=== PATIENT | female | born 1975 | race Caucasian/White ===

== ENCOUNTER 2024-03-14 00:45 | Day surgery (SDC) | payer BC, SELFPAY ==
[2024-03-10 15:11] VITALS: BMI 26.8
--- NOTE | 2024-03-10 15:12 | PC.NURSE ---
Report to the Outpatient Waiting Room, entrance under the green pavilion located off [facility], at time _1100_ on date _[id number]_. Planned Procedure Time: _1pm_.? Time changes happen often and if your time is changed the preop area will call you the afternoon before. - You and your visitor will be asked to self-screen and do not enter if you have any COVID symptoms. Please call surgeon if you need to reschedule. - A mask is optional within the hospital at this time. Patients may have clear liquids (water, carbonated beverages, clear teas, apple juice) until 3 hours prior to surgery with a maximum of 20 ounces. - No food from midnight until time of surgery and no smoking Take only the following medications with a SIP of water on the morning of surgery: ___None DO NOT STOP ANY OF YOUR OTHER PRESCRIPTION MEDICATIONS PRIOR TO SURGERY EXCEPT THE FOLLOWING Medications to discontinue per physician ___Vitamin and supplement Date to take last [id number] Please no make-up, nail romansh, hairspray, perfume, deodorant, or body powder the day of surgery.? No jewelry (including any body piercings) or valuables the day of surgery, leave them at home.? Please take a shower or bath the night before, or the morning of, surgery with an antibacterial soap.? Wear comfortable, loose fitting clothing.? - Jewelry must be removed prior to entering the operating room.? Rings and piercings that are not removed may be cut off. - The hospital will not accept responsibility for valuables.? - Please leave all valuables, including medications, at home the day of surgery. If you are going home after surgery, a licensed day haul or farm charter bus driver must drive you home.? - NO public transportation without another adult if you receive anesthesia. - We recommend that an adult stay with you for 24 hours following discharge. - We also recommend that you do not drive, make important decision, drink alcoholic beverages, or take any drugs that were not prescribed by your health care provider for at least 24 hours after your discharge time. Follow any additional instructions given to you from your surgeon. Telephone instructions given to __Freida___and asked if any additional questions and then verbalized understanding. Patient advised to call surgeon office or pre surgery nurse liaison [phone] if any additional questions.
--- NOTE | 2024-03-14 07:16 | WPDHPUPDATE1 ---
History and Physical Update Update Date/Time: 03/14/24 07:16 History and Physical has been reviewed, including an updated exam of the patient. There are NO changes in the patient's condition. Risks, benefits, and alternatives have been discussed and questions answered. Patient agrees to proceed with hysteroscopy with D&C.
[2024-03-14 11:07] LABS: BEDSIDEPREGUCG Negative (Negative)
[2024-03-14] MEDS: ACETAMINOPHEN 500 MG TABLET 1000 MG PO (11:25)
[2024-03-14 11:26] VITALS: BP 119/76; PULSE 77; RESP 18; TEMP 36.4; O2SAT 100
[2024-03-14] MEDS: LACTATED RINGERS 1,000 ML 30 ML IV CONT (11:30)
--- NOTE | 2024-03-14 11:43 | WPDANESEPPF ---
Anes - Initial Pre Proc Eval Procedure: Operation Date: 03/14/24 13:00 Proposed Procedures p Hysteroscopy Dilation and Curettage - Trini Baker MD Date/Time: 03/14/24 11:43 Surgeon: Trini Baker MD Pre Op Diagnosis: endometrial hyperplasia Patient Data Age: 49 Gender: F Height: 1.52 m Weight: 63.3 kg Last Vital Signs Temp 36.4 C 03/14/24 11:26 Pulse 77 03/14/24 11:26 Resp 18 03/14/24 11:26 BP 119/76 03/14/24 11:26 Pulse Ox 100 03/14/24 11:26 O2 Del Method Room Air 03/14/24 11:26 Allergies Allergy/AdvReac Type Severity Reaction Status Date / Time No Known Allergies Allergy Verified 03/14/24 11:34 Home Medications Medication Instructions Recorded Confirmed Type cholecalciferol (vitamin D3) 10 10 mcg PO DAILY 12/09/23 03/14/24 History mcg (400 unit) capsule soy isoflavone-black cohosh 1 cap PO DAILY 03/09/24 03/14/24 History root-magnolia bark 155 mg capsule (Estroven) Laboratory Tests 03/14/24 11:05 POC Urine HCG, Qual Negative (Negative) Patient hx anesthesia problems: none Family hx anesthesia problems: none Results Review: All pre-operative results and documents have been reviewed as part of the pre-operative evaluation. [facility] Past Medical History Medical History (Updated 03/14/24 @ 11:43 by Samuel Benítez MD) Overweight Surgical History Surgical History Delivery by section xs 3 History of endometrial ablation History of tubal ligation Family History Family History Father Diabetes mellitus Hypertension Skin cancer Social History Social History Smoking status: Never smoker Alcohol intake: current Drinks per week: 4 Alcohol use details: socially Substance use: never Lack of Transportation: No Lack of Food: Never True Current Housing: I Have Housing Concerned About Future Housing: No Difficulty Paying Gas/Electric Bills: No Difficulty Paying for Meds: No Currently Unemployed: No Education: Bachelor's Degree Difficulty w/ Childcare or Family Care: No Living arrangements: with family 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 Gender identity (if verbalized by the patient): Female Sexual Orientation (if Verbalized by the Patient): Straight or Heterosexual Spiritual care concerns: No Anes - Eval Final PreProcedure Day of Procedure 03/14/24 11:43 Patient weight: overweight Heart: regular rate and rhythm Lungs: clear to auscultation Airway: Mallampati scale class II Neurological: alert and oriented Last oral intake: >/= 8 hours ASA classification: II Emergent: no Anesthetic plan: proceed Anesthesia type and monitoring: general GIVS and standard monitoring Results Review: All pre-operative results and documents have been reviewed as part of the pre-operative evaluation. Informed Consent: The patient's anesthetic plan and its attendant risks and benefits were discussed with the patient/family/POA. Questions were solicited and answers provided to the satisfaction of the patient/family/POA.
[2024-03-14 14:08] VITALS: BP 116/47; PULSE 85; RESP 12; O2SAT 99
--- NOTE | 2024-03-14 14:13 | P.OP_ITS ---
Procedure Note - Detailed Date of Procedure 03/14/24 Pre-op Diagnosis Thickened endometrium on US Pelvic pain History of endometrial ablation Post-op Diagnosis Same Procedure Performed Operative hysteroscopy with D&C Surgeon Trini Baker MD Anesthesia MAC Findings normal appearing cervix; uterus with multiple adhesions from prior ablation-- small tracks that were extended using hysteroscopic Fluid deficit: 640cc Description of Procedure Freida was taken to the operating room where she was placed under sedation without complications. She was then prepped and draped in the usual sterile fashion in the dorsal lithotomy position with her legs in low Fabián stirrups. A time-out was performed and no perioperative antibiotics were indicated. A bivalve speculum was placed within the vagina where the cervix was easily identified. The anterior lip of the cervix was grasped with a single-tooth tenaculum. The cervix was then serially dilated to allow for the hysteroscope, but I was not able to get into the uterine cavity (sounded to about 4cm). The h ysteroscope was advanced into the cervix and endometrial scar tissue/tracks were noted. Using the hysteroscopic scissors and graspers; the tracks were followed and extended, the tissue was soft and easy to cut, therefore, I felt like I was within the uterine cavity in the endometrium (sounded to about 8.5cm at this point and I knew the uterus measures ~9.5cm). Using a bedside US, I was monitoring where my instruments were located to verify I was not going to perforate the uterus. The cavity size was extended, but I could not verify that I had entered into the endometrial cyst (wondering if it is an adenomatous lesions in the myometrium). At this point, the fluid deficit was around 600cc and I decided to end the hysteroscopic portion as I did not want to perforate the uterus or have a higher fluid deficit. A curettage was then performed and a sample was obtained. Good hemostasis was noted. All instruments were removed from the vagina. Sponge, lap, instrument, and needle counts were correct at the end of the procedure. Patient was awoken from anesthesia and taken to recovery with plans of same-day discharge home. Estimated Blood Loss 10 IV Fluids 1,000 Pathology Yes (endometrial curettings) Complications No immediate complications Condition Stable Disposition Same day [facility] Billing Surgery - Charge Forward: Surgery Billing
[2024-03-14 14:30] VITALS: BP 123/78; PULSE 80; RESP 16
[2024-03-14] MEDS: IBUPROFEN 400 MG TABLET 800 MG PO (14:47)
[2024-03-14 15:00] VITALS: BP 119/80; PULSE 89; RESP 16
== END 2024-03-14 15:20 | disposition home or self-care (01) ==
PROVIDERS: Visit Provider Obstetrics & Gynecology
PROC: 0U5B8ZZ Destruction of Endometrium, Via Natural or Artificial Opening Endoscopic (ICD-10-PCS; CPT 58563; principal; 2024-03-14 13:00)
DX: R93.89 Abnormal findings on diagnostic imaging of other specified body structures (principal); Z98.890 Other specified postprocedural states; Z98.51 Tubal ligation status; Z84.0 Family history of diseases of the skin and subcutaneous tissue
CPT/HCPCS: 58558; 88305; A9270; J1100; J2003; J2250; J2405; J3010; J7030; J7120

== ENCOUNTER 2024-05-08 10:20 | Emergency (ER) | payer BC, SELFPAY ==
--- NOTE | ~2024-05-08 | CT_ITS ---
EXAMINATION: CT abdomen pelvis w con DATE: 05/08/2024 13:58 INDICATION: Lower abdominal pain. TECHNIQUE: Computed tomography (CT) of the abdomen and pelvis was performed with 100 mL Omnipaque 350 intravenous contrast. Automated exposure control and iterative reconstruction technique were employe d. The dose-length product was 233.36 mGy-cm. COMPARISON: None. FINDINGS: The visualized portions of the lung bases are clear without pneumonia or pleural effusion. The heart size is normal. No pericardial effusion. The liver, gallbladder, spleen, pancreas, adrenal glands, and kidneys are normal. There are no dilated loops of bowel. The appendix is not visualized. There are no pathologically enlarged lymph nodes. There is no free intraperitoneal fluid. The endomet rial complex is thickened to 2.0 cm, which may be endometrial hyperplasia or polyp. There is mild tho racic spondylosis. IMPRESSION: 1. No specific etiology for the patient's symptoms. Reviewed, dictated and finalized at location A. RONMENTAL CONTROL ADMINISTRATOR
[2024-05-08 10:34] VITALS: BP 115/77; PULSE 84; RESP 18; TEMP 36.4; O2SAT 100
[2024-05-08 12:00] VITALS: BP 120/70; PULSE 76; RESP 16; TEMP 36.6; O2SAT 98
[2024-05-08 12:00] LABS: Basophils Percent Auto 0.4 % (0.2-1.2); Eosinophils Percent Auto 0.1 % (0-4.4); Hematocrit 44.9 % (37.0-47.0); Hemoglobin 15.1 g/dL (12.0-15.0); Immature Granulocyte Absolute 0.03 K/mm3 (0.00-0.031); Immature Granulocyte Percent A 0.3 % (0-0.5); Lymphocytes Absolute Auto 0.67 K/mm3 (0.9-3.2); Lymphocytes Percent Auto 6.2 % (18.3-44.2); Mean Corpuscular HGB Conc 33.6 g/dl (32-36); Mean Corpuscular Hemoglobin 30.8 pg (26-34); Mean Corpuscular Volume 91.4 fl (80-100); Mean Platelet Volume 10.1 fl (7.4-10.4); Monocytes Absolute Auto 0.6 K/mm3 (0.1-0.6); Monocytes Percent Auto 5.3 % (2.6-8.5); Neutrophils Absolute Auto 9.5 K/mm3 (1.3-6.7); Neutrophils Percent Auto 87.7 % (45.5-73.1); Platelet Count Result 221 k/mm3 (150-375); Red Blood Count 4.91 M/mm3 (4.2-5.4); Red Cell Distribution Width 11.9 % (11.5-14.5); White Blood Count 10.8 K/mm3 (4.5-10.0)
[2024-05-08 12:06] LABS: Add Urine Microscopic? NO; Appearance Urine Clear (Clear); Bilirubin Urine Negative (Negative); Blood Urine Negative (Negative); Color Urine Yellow (Yellow); Glucose Urine UA Negative (Negative); Ketones Urine Negative (Negative); Leukocyte Esterase Ur Negative LEU/UL (Negative); Nitrate Urine Negative (Negative); Protein Urine Negative (Negative); Specific Grav Ur 1.009 (1.001-1.035); Urobilinogen Urine 0.2 mg/dL (<2.0)
[2024-05-08 12:11] LABS: Alanine Aminotransferase 19 U/L (6-35); Albumin Level 4.3 g/dL (3.5-5.1); Alkaline Phosphatase 58 U/L (38-126); Anion Gap 7 mmol/L (4-12); Aspartate Amino Transferase 23 U/L (14-36); Bilirubin,Total 0.8 mg/dL (0.2-1.3); Blood Urea Nitrogen 10 mg/dL (7-17); Calcium 9.4 mg/dL (8.4-10.2); Carbon Dioxide 23 mmol/L (22-30); Chloride 107 mmol/L (98-107); Estimated CRCL calculation 62 ml/min; Estimated Glomerular Filt Rate > 60; Glucose 105 mg/dL (65-110); Sodium 137 mmol/L (137-145)
[2024-05-08 13:00] VITALS: BP 118/68; PULSE 78; RESP 16; TEMP 36.5; O2SAT 100
--- NOTE | 2024-05-08 13:04 | ED.GENADULT ---
HPI - General Adult General Chief complaint: Urogenital-Female Stated complaint: pelvic pain Time Seen by Provider: 05/08/24 12:28 Source: patient and family Mode of arrival: ambulatory Limitations: no limitations History of Present Illness HPI narrative: 49 YEARS OLD WHITE FEMALE CAME TO THE ED BY PRIVATE CAR COMPLAINING OF LOWER ABDOMINAL PAIN SINCE April. PATIENT IS STATUS POST D AND C ON MARCH 14. PATIENT REPORT THAT THE PAIN USUALLY GETS BETTER ON IBUPROFEN, THIS MORNING DID NOT. SHE REPORTS VOMITING TWICE THIS MORNING WITH THE PAIN. SHE DENIES ANY FEVER OR CHILLS DIARRHEA, CONSTIPATION VAGINAL BLEEDING OR DISCHARGE. Related Data Home Medications Medication Instructions Recorded Confirmed cholecalciferol (vitamin D3) 10 10 mcg PO DAILY 12/09/23 03/30/24 mcg (400 unit) capsule Allergies Allergy/AdvReac Type Severity Reaction Status Date / Time No Known Allergies Allergy Verified 03/30/24 13:35 Review of Systems Review of Systems: All systems reviewed & are unremarkable except as noted in HPI and below PMFSH Past Medical History Medical History Overweight Surgical History Surgical History Delivery by section xs 3 History of endometrial ablation History of tubal ligation Family History Family History Father Diabetes mellitus Hypertension Skin cancer Social History Social History Smoking status: Never smoker Alcohol intake: current Drinks per week: 4 Alcohol use details: socially Substance use: never Do You Feel Safe in your Home?: Yes Lack of Transportation: No Lack of Food: Never True Current Housing: Decline to Answer Concerned About Future Housing: Decline to Answer Difficulty Paying Gas/Electric Bills: Decline to Answer Difficulty Paying for Meds: Decline to Answer Currently Unemployed: Decline to Answer Education: Decline to Answer Difficulty w/ Childcare or Family Care: No Living arrangements: with family 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 Gender identity (if verbalized by the patient): Female Sexual Orientation (if Verbalized by the Patient): Straight or Heterosexual Spiritual care concerns: No Exam Narrative: GENERAL APPEARANCE: WELL-DEVELOPED, WELL-NOURISHED SKIN: NORMAL COLOR HEAD: NORMOCEPHALIC, NONTRAUMATIC EYES: CLEAR CONJUNCTIVA ENT: OROPHARYNX NORMAL, EARS NORMAL, NOSE NORMAL NECK: SUPPLE, NONTENDER CHEST AND RESPIRATORY: AIRWAY PATENT, NO RESPIRATORY DISTRESS, NO ACCESSORY MUSCLE USE HEART: REGULAR RATE/RHYTHM ABDOMEN: SOFT, NONTENDER, NO ORGANOMEGALY, QUIET BOWEL SOUNDS VASCULAR: NORMAL PERIPHERAL PULSES, NORMAL CAPILLARY REFILL. MUSCULOSKELETAL: NORMAL RANGE OF MOTION, NONTENDER BACK NEUROLOGIC: ALERT AND ORIENTED ?3, LOAD HAUL DUMP OPERATOR IS NORMAL TESTED, NO GROSS MOTOR DEFICIT Course Vital Signs Vital signs: Vital Signs Temperature 36.4 C L 05/08/24 10:34 Pulse Rate 84 05/08/24 10:34 Respiratory Rate 18 05/08/24 10:34 Blood Pressure 115/77 05/08/24 10:34 Pulse Oximetry 100 05/08/24 10:34 Oxygen Delivery Room Air 05/08/24 10:34 Temperature 36.4 C L 05/08/24 10:34 Pulse Rate 84 05/08/24 10:34 Respiratory Rate 18 05/08/24 10:34 Blood Pressure 115/77 05/08/24 10:34 Pulse Oximetry 100 05/08/24 10:34 Oxygen Delivery Room Air 05/08/24 10:34 Medical Decision Making MDM Narrative Medical decision making narrative: PATIENT CAME WITH LOWER ABDOMINAL PAIN VITAL SIGNS ARE STABLE PHYSICAL EXAMINATION SHOWED NO LOCALIZED TENDERNESS, DIFFERENTIAL DIAGNOSIS URINARY TRACT INFECTION, SCAR TISSUE POST D&C MARCH 14, STRESS RELATED SYMPTOMS, CONSTIPATION, APPENDICITIS, CHOLECYSTITIS, DIVERTICULITIS. BLOOD WORKUP TODAY INCLUDES CBC, CMP, LIPASE SHOWED WBC OF 10.8, OTHERWISE INSIGNIFICANT URINALYSIS SHOWED NO SIGN OF INFECTION CT ABDOMEN AND PELVIS WITH IV CONTRAST SHOWED Differential Diagnosis Differential Diagnosis: ABOVE Vital Signs Vital Signs: Vital Signs Temperature 36.4 C L 05/08/24 10:34 Pulse Rate 84 05/08/24 10:34 Respiratory Rate 18 05/08/24 10:34 Blood Pressure 115/77 05/08/24 10:34 Pulse Oximetry 100 05/08/24 10:34 Oxygen Delivery Room Air 05/08/24 10:34 Temperature 36.4 C L 05/08/24 10:34 Pulse Rate 84 05/08/24 10:34 Respiratory Rate 18 05/08/24 10:34 Blood Pressure 115/77 05/08/24 10:34 Pulse Oximetry 100 05/08/24 10:34 Oxygen Delivery Room Air 05/08/24 10:34 Lab Data 05/08/24 11:41 05/08/24 11:41 Labs: Lab Results 05/08/24 05/08/24 Range/Units 11:40 11:41 WBC 10.8 H (4.5-10.0) K/mm3 RBC 4.91 (4.2-5.4) M/mm3 Hgb 15.1 H (12.0-15.0) g/dL Hct 44.9 (37.0-47.0) % MCV 91.4 (80-100) fl MCH 30.8 (26-34) pg MCHC 33.6 (32-36) g/dl RDW 11.9 (11.5-14.5) % Plt Count 221 (150-375) k/mm3 MPV 10.1 (7.4-10.4) fl Immature Gran % (Auto) 0.3 (0-0.5) % Neut % (Auto) 87.7 H (45.5-73.1) % Lymph % (Auto) 6.2 L (18.3-44.2) % [place] % (Auto) 5.3 (2.6-8.5) % Eos % (Auto) 0.1 (0-4.4) % Baso % (Auto) 0.4 (0.2-1.2) % Lymph # (Auto) 0.67 L (0.9-3.2) K/mm3 [place] # (Auto) 0.6 (0.1-0.6) K/mm3 Eos # (Auto) 0.0 (0-0.3) K/mm3 Baso # (Auto) 0.0 (0.0-0.1) K/mm3 Abs Immat Gran (auto) 0.03 (0.00-0.031) K/mm3 Absolute Neuts (auto) 9.5 H (1.3-6.7) K/mm3 Absolute Nucleated RBC 0.000 (0.0-0.012) K/mm3 Nucleated RBC % 0.0 (0.0-0.2) % Sodium 137 (137-145) mmol/L Potassium 4.0 (3.4-5.0) mmol/L Chloride 107 (98-107) mmol/L Carbon Dioxide 23 (22-30) mmol/L Anion Gap 7 (4-12) mmol/L BUN 10 (7-17) mg/dL Creatinine 0.80 (0.7-1.0) mg/dL Estim Creat Clear Calc 62 ml/min Estimated GFR > 60 (59 - ) Glucose 105 (65-110) mg/dL Calcium 9.4 (8.4-10.2) mg/dL Total Bilirubin 0.8 (0.2-1.3) mg/dL AST 23 (14-36) U/L ALT 19 (6-35) U/L Alkaline Phosphatase 58 (38-126) U/L Total Protein 7.0 (6.3-8.2) g/dL Albumin 4.3 (3.5-5.1) g/dL Lipase 84 (23-300) U/L Urine Color Yellow (Yellow) Urine Appearance Clear (Clear) Urine pH 6.0 (5.0-9.0) Ur Specific [place] 1.009 (1.001-1.035) Urine Protein Negative (Negative) mg/dL Urine Glucose (UA) Negative (Negative) mg/dL Urine Ketones Negative (Negative) mg/dL Ur Blood (Man) Negative (Negative) Urine Nitrate Negative (Negative) Urine Bilirubin Negative (Negative) Urine Urobilinogen 0.2 (<2.0) mg/dL Leukocyte Esterase Rfl Negative (Negative) TL/UL Imaging Data Radiologist's impression: Impressions Abdomen/Pelvis CT 05/08/24 13:58 IMPRESSION: 1. No specific etiology for the patient's symptoms. Discharge Plan Discharge Clinical Impression: Lower abdominal pain Patient Disposition: Home, Self-Care Condition: Stable Instructions: Abdominal Pain (ED) Additional Instructions: RETURN IF SYMPTOMS ARE WORSENING , CALL YOUR OBGYN FOR APPOINTMENT, TAKE TYLENOL, IBUPROFEN NEEDED FOR ACHES AND PAIN, CONTINUE HOME MEDICATIONS. Prescriptions: No Action cholecalciferol (vitamin D3) 10 mcg (400 unit) capsule 10 mcg PO DAILY norethindrone ac-eth estradiol 1-20 mg-mcg tablet 1 tablet PO DAILY Qty: 84 3RF Rx Instructions: in a continuous manner to skip cycles Follow-up/Referrals: PHYSICIAN NOT ON STAFF,NONSTAFF [Primary Care Provider] -
[2024-05-08 13:21] LABS: Lipase 84 U/L (23-300)
--- NOTE | 2024-05-08 13:30 | PC.NURSE ---
Pt. states there is no chance she is . Prior uterine ablation and my tubes are tied. CT notified pt. wanting to sign consent.
[2024-05-08 14:00] VITALS: BP 122/70; PULSE 74; RESP 16; TEMP 36.6; O2SAT 98
== END 2024-05-08 14:55 | disposition home or self-care (01) ==
PROVIDERS: Emergency Provider Emergency Medicine
DX: R10.30 Lower abdominal pain, unspecified (principal)
CPT/HCPCS: 36415; 74177; 80053; 81003; 83690; 85025; 99284; Q9967

== ENCOUNTER 2024-05-16 13:50 | Outpatient (CLI) | payer BC, SELFPAY | END 2024-05-16 13:51 | disposition home or self-care (01) | LOC: ANHLAB 13:52 | PROVIDERS: Visit Provider Anesthesiology | DX: Z01.812 Encounter for preprocedural laboratory examination (principal); R10.2 Pelvic and perineal pain | CPT/HCPCS: 36415; 86850; 86900; 86901 ==

== ENCOUNTER 2024-05-23 00:32 | Day surgery (SDC) | payer BC, SELFPAY ==
[2024-05-13 14:45] VITALS: BMI 26.6
--- NOTE | 2024-05-13 14:51 | PC.NURSE ---
Report to the Outpatient Waiting Room, entrance under the green pavilion located off [facility], at time _0600_ on date _[id number]_. Planned Procedure Time: _0730_.? Time changes happen often and if your time is changed the preop area will call you the afternoon before. - You and your visitor will be asked to self-screen and do not enter if you have any COVID symptoms. Please call surgeon if you need to reschedule. - A mask is optional within the hospital at this time. Patients may have clear liquids (water, carbonated beverages, clear teas, apple juice) until 3 hours prior to surgery with a maximum of 20 ounces. - No food from midnight until time of surgery and no smoking. This includes no chewing gum, candy or mints. Take only the following medications with a SIP of water on the morning of surgery: ____None DO NOT STOP ANY OF YOUR OTHER PRESCRIPTION MEDICATIONS PRIOR TO SURGERY EXCEPT THE FOLLOWING Medications to discontinue per physician ___Vitamin Date to take last hfnp___[id number]____ Please no make-up, nail norwegian, hairspray, perfume, deodorant, or body powder the day of surgery.? No jewelry (including any body piercings) or valuables the day of surgery, leave them at home.? Please take a shower or bath the night before, or the morning of, surgery with an antibacterial soap.? Wear comfortable, loose fitting clothing.? . - Jewelry must be removed prior to entering the operating room.? Rings and piercings that are not removed may be cut off. - The hospital will not accept responsibility for valuables.? - Please leave all valuables, including medications, at home the day of surgery. If you are going home after surgery, a licensed national dedicated truck driver must drive you home.? - NO public transportation without another adult if you receive anesthesia. - We recommend that an adult stay with you for 24 hours following discharge. - We also recommend that you do not drive, make important decision, drink alcoholic beverages, or take any drugs that were not prescribed by your health care provider for at least 24 hours after your discharge time. Follow any additional instructions given to you from your surgeon. Telephone instructions given to __Freida__and asked if any additional questions and then verbalized understanding. Patient advised to call surgeon office or pre surgery nurse liaison [phone] if any additional questions.
[2024-05-23] VITALS (13 sets, daily range): BP systolic 95–128; BP diastolic 54–74; PULSE 53–83; RESP 14–20; TEMP 36.3–37.1; O2SAT 95–100
[2024-05-23] MEDS: ACETAMINOPHEN 500 MG TABLET 1000 MG PO ×2 (06:52→19:05)
[2024-05-23] MEDS: KETOROLAC 15 MG/ML VIAL (*BKC) IV PUSH (06:52)
--- NOTE | 2024-05-23 07:09 | WPDHPUPDATE1 ---
History and Physical Update Update Date/Time: 05/23/24 07:09 History and Physical has been reviewed, including an updated exam of the patient. There are NO changes in the patient's condition. Risks, benefits, and alternatives have been discussed and questions answered. Patient agrees to proceed with robotic assisted total laparoscopic hysterectomy with bilateral salpingectomy and cystoscopy.
--- NOTE | 2024-05-23 07:20 | P.PNAN_ITS ---
Anes - Initial Pre Proc Eval Procedure: Operation Date: 05/23/24 07:30 Proposed Procedures p Robotic Assisted Total Laparoscopic Hysterectomy with Bilateral Salpingectomy - Trini Baker MD Date/Time: 05/23/24 07:20 Surgeon: Trini Baker MD Pre Op Diagnosis: pelvic pain Patient Data Age: 49 Gender: F Height: 1.52 m Weight: 61.8 kg Allergies Allergy/AdvReac Type Severity Reaction Status Date / Time No Known Allergies Allergy Verified 05/16/24 14:43 Home Medications ?Medication ?Instructions ?Recorded ?Confirmed ?Type cholecalciferol (vitamin D3) 10 10 mcg PO DAILY 12/09/23 05/16/24 History mcg (400 unit) capsule acetaminophen 500 mg tablet 1,000 mg (2 x 500 mg) PO TID #60 05/23/24 Rx tabs docusate sodium 100 mg capsule 100 mg PO BID #90 caps 05/23/24 Rx (Colace) ibuprofen 800 mg tablet 800 mg PO TID #30 tabs 05/23/24 Rx nitrofurantoin 100 mg PO Q12H 7 days #14 caps 05/23/24 Rx monohydrate/macrocrystals 100 mg capsule (Macrobid) ondansetron 4 mg disintegrating 4 mg PO Q6H PRN nausea and 05/23/24 Rx tablet vomiting #30 tabs oxycodone 5 mg tablet See Rx Instructions .Route 05/23/24 Rx .COMPLEX PRN pain #24 tabs : patient denies (negative) Patient hx anesthesia problems: post op nausea/vomiting Family hx anesthesia problems: none Results Review: All pre-operative results and documents have been reviewed as part of the pre- operative evaluation. [facility] Past Medical History Medical History Overweight Surgical History Surgical History H/O dilation and curettage 03/14/2024 History of endometrial ablation History of tubal ligation Delivery by section xs 3 Family History Family History Father Diabetes mellitus Hypertension Skin cancer Social History Social History Smoking status: Never smoker Alcohol intake: current Drinks per week: 3 Alcohol use details: socially Substance use: never Do You Feel Safe in your Home?: Yes Lack of Transportation: No Lack of Food: Never True Current Housing: Decline to Answer Concerned About Future Housing: Decline to Answer Difficulty Paying Gas/Electric Bills: Decline to Answer Difficulty Paying for Meds: Decline to Answer Currently Unemployed: Decline to Answer Education: Decline to Answer Difficulty w/ Childcare or Family Care: No Living arrangements: with family 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 Gender identity (if verbalized by the patient): Female Sexual Orientation (if Verbalized by the Patient): Straight or Heterosexual Spiritual care concerns: No Anes - Eval Final PreProcedure Day of Procedure 05/23/24 07:20 Patient weight: overweight Heart: regular rate and rhythm Lungs: normal air movement Airway: Mallampati scale class II Neurological: alert and oriented Last oral intake: >/= 8 hours ASA classification: II Emergent: no Anesthetic plan: proceed Anesthesia type and monitoring: general and standard monitoring Results Review: All pre-operative results and documents have been reviewed as part of the pre- operative evaluation. Informed Consent: The patient's anesthetic plan and its attendant risks and benefits were discussed with the patient/family/POA. Questions were solicited and answers provided to the satisfaction of the patient/family/POA.
[2024-05-23] MEDS: SCOPOLAMINE 1 MG PATCH 1 PATCH TRANSDERM (07:30)
[2024-05-23] MEDS: ceFAZolin 2 GM/D5W 50 ML 2 GM/50 ML BAG IVPB (07:34)
[2024-05-23] MEDS: metroNIDAZOLE 500 MG/ISO 100ML 500 MG/100 ML BAG 100 MG IVPB (07:56)
[2024-05-23] MEDS: LACTATED RINGERS 1,000 ML 30 ML IV CONT ×2 (08:03→09:58)
[2024-05-23 08:15] LABS: BEDSIDEPREGUCG Negative (Negative)
[2024-05-23] MEDS: LIDO 1%/EPINEPHRINE 1:100,000 20 ML VIAL 30 ML INFILTRATE (08:45)
[2024-05-23] MEDS: METHYLENE BLUE 0.5% INJ 10 ML AMPULE 20 ML IRRIGATION (08:51)
--- NOTE | 2024-05-23 09:42 | P.OP_ITS ---
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 History of bilateral tubal ligation. Normal ovaries bilaterally. Bladder adhesions to the ROGER of the uterus; bladder back filled with methylene blue. Normal bladder without defects/masses; bilateral uretaral efflux noted. Surgicel powder placed and good hemostasis at end of case. Uterus/cervix/tubes: 123g Description of Procedure Freida was taken to the operating room where she was placed under general anesthesia without issues. She received 2 g Ancef and 500mg Metronidazole. She was then prepped and draped in the usual sterile fashion in the dorsal lithotomy position with her legs in low Fabián stirrups, her arms tucked at her side, with a strap over her chest. A time-out was performed. My attention was turned down below where a kang catheter was placed. A bivalve speculum was placed within the vagina. The cervix was easily identified and the anterior lip of the cervix was grasped with single-tooth tenaculum. The uterus was then sounded to 8cm. The cervix was serially dilated to allow for the ADRIANA uterine manipulator; which was placed w/o issue (6cm tip, then replaced with 8cm tip with 3cm cervical ring). My gloves were changed and attention was then turned to the abdomen. A 5 mm trocar was placed under direct visualization at Roblero's point without issue. Once intra-abdominal placement was confirmed, the abdomen was insufflated with carbon dioxide gas. An abdominal survey was performed and the above findings were noted. Two additional ports were placed on the right and left side and the camera port was placed supraumbilical under direct visualization without issues. The 5mm port was switched out for the accessory port under direct visualization. The patient was then placed in deep Trendelenburg, with the legs slightly lowered. The robot was then docked. The instruments were placed intra-abdominally under direct visualization. I then un-scrubbed and went to the robotic console. I then started my hysterectomy on the right side. The ureter was easily identified transperitoneally and well out of the surgical field. The fallopian tube was elevated and the mesosalpinx was coagulated and transected. The round ligament was clamped, coagulated, and transected. The uterine ovarian artery was then serially clamped, coagulated, and transected with good hemostasis. The broad ligament was dissected anteriorly and posteriorly skeletonizing the uterine artery. The bladder flap was then attempted to be developed on the right side but thick adhesions were noted and no easy plane was noted. The same procedure was then performed on the left side. The bladder flap was once again attempted to be started on the left side to carry around counter clock mack, but thick adhesions were noted. The bladder was then back filled with 200cc of NS with methylene blue to help differentiate bladder vs scar tissue. It was then noted that the uterine manipulator was not in the correct place. Therefore I scrubbed back into surgery and placed the ADRIANA uterine manipulator using an 8cm tip and it was then noted to be in place and the uterus was easy to move. With careful dissection, a plane was then slowly and carefully developed the bladder flap. The uterine arteries were then serially clamped and coagulated. Once the vessel was adequately coagulated, it was then transected with good hemostasis. The uterus was noted to be devascularized. The bladder flap was verified out of the surgical field and the colpotomy was started anteriorly and continued in a clockwise fashion until the uterus was released. The uterus was removed from the abdomen via the vagina without complications. The vaginal cuff had small bleeders that were made hemostatic without complications. The vaginal cuff was then reapproximated using a 0 V lock suture. The pelvis was then irrigated and suctioned free of all clots and debris. Good hemostasis was noted. The pneumoperitoneum was released and no bleeding was identified. Surgicel powder was then placed on all raw edges. All instruments were removed from the abdomen and the robot was undocked. I then scrubbed back in and verified that the cuff was intact without any defects. The Kang catheter was then removed. The cystoscope was placed within the bladder, which filled without difficulty. Bilateral ureteral efflux was noted. The bladder was examined and no defects or abnormalities were visualized. The bladder was drained. The cystoscope was removed. The Kang catheter was replaced under aseptic technique. The 4 laparoscopic incisions were reapproximated using 4-0 Monocryl and covered with Dermabond. The laparoscopic incisions were infiltrated with local anesthesia for better pain control. Sponge, lap, instrument, and needle counts were correct at the end the procedure. Patient was awoken from general anesthesia and taken to recovery in a stable conditions with plans of overnight stay. Estimated Blood Loss 100 IV Fluids 1,000 Urine Output 200 Pathology Yes (uterus, cervix, bilateral fallopian tubes) Complications No immediate complications Condition Stable Disposition Observation [facility] Billing Surgery - Charge Forward: Surgery Billing
[2024-05-23] MEDS: fentaNYL CITRATE INJ (*CRX) 100 MCG/2 ML VIAL 25 MCG IV PUSH ×3 (10:22→10:36)
--- NOTE | 2024-05-23 11:40 | PC.NURSE ---
This patient, Freida La, was received from PACU on 05/23/24 at 1140. Patient/family oriented to unit policies and routines
[2024-05-23] MEDS: DEXTROSE 5%/0.45% SOD CHL 1,000 ML 125 ML IV CONT ×2 (12:20→20:22)
[2024-05-23] MEDS: HYDROmorphone HCL INJ (*CRX) 1 MG/ML SYR 0.5 MG IV PUSH ×2 (12:21→17:05)
[2024-05-23] MEDS: KETOROLAC 30 MG/ML VIAL (*BKC) IV PUSH ×2 (13:18→19:04)
[2024-05-23] MEDS: PROMETHAZINE HCL 25 MG/ML AMPUL 12.5 MG IV PUSH ×2 (15:08→19:04)
[2024-05-23] MEDS: ONDANSETRON INJ 4 MG/2 ML VIAL IV PUSH (17:12)
[2024-05-24 00:30] VITALS: BP 122/74; PULSE 85; RESP 14; TEMP 36.9; O2SAT 99
[2024-05-24] MEDS: KETOROLAC 30 MG/ML VIAL (*BKC) IV PUSH (01:34)
[2024-05-24] MEDS: ACETAMINOPHEN 500 MG TABLET 1000 MG PO ×2 (01:35→07:39)
[2024-05-24 05:02] VITALS: BP 98/65; PULSE 64; RESP 14; TEMP 37; O2SAT 99
[2024-05-24 05:12] LABS: Basophils Absolute Auto 0.1 K/mm3 (0.0-0.1); Basophils Percent Auto 0.4 % (0.2-1.2); Eosinophils Percent Auto 0.1 % (0-4.4); Hematocrit 41.7 % (37.0-47.0); Hemoglobin 14.2 g/dL (12.0-15.0); Immature Granulocyte Absolute 0.05 K/mm3 (0.00-0.031); Immature Granulocyte Percent A 0.4 % (0-0.5); Lymphocytes Absolute Auto 1.74 K/mm3 (0.9-3.2); Lymphocytes Percent Auto 12.3 % (18.3-44.2); Mean Corpuscular HGB Conc 34.1 g/dl (32-36); Mean Corpuscular Hemoglobin 31.8 pg (26-34); Mean Corpuscular Volume 93.3 fl (80-100); Monocytes Percent Auto 7.2 % (2.6-8.5); Neutrophils Absolute Auto 11.3 K/mm3 (1.3-6.7); Neutrophils Percent Auto 79.6 % (45.5-73.1); Platelet Count Result 207 k/mm3 (150-375); Red Blood Count 4.47 M/mm3 (4.2-5.4); Red Cell Distribution Width 11.8 % (11.5-14.5); White Blood Count 14.2 K/mm3 (4.5-10.0)
[2024-05-24 05:27] LABS: Anion Gap 4 mmol/L (4-12); Blood Urea Nitrogen 7 mg/dL (7-17); Calcium 8.4 mg/dL (8.4-10.2); Carbon Dioxide 22 mmol/L (22-30); Chloride 111 mmol/L (98-107); Estimated CRCL calculation 62 ml/min; Estimated Glomerular Filt Rate > 60; Glucose 107 mg/dL (65-110); Potassium 3.8 mmol/L (3.4-5.0); Sodium 137 mmol/L (137-145)
[2024-05-24 07:35] VITALS: BP 98/62; PULSE 88; RESP 16; TEMP 37.2; O2SAT 99
[2024-05-24] MEDS: SIMETHICONE 80 MG TAB.CHEW PO (07:38)
[2024-05-24] MEDS: DOCUSATE SODIUM 100 MG CAPSULE PO (07:39)
[2024-05-24] MEDS: IBUPROFEN 600 MG TABLET PO (07:39)
--- NOTE | 2024-05-24 09:21 | PM.GYNPNOP ---
OPERATIONS INTELLIGENCE - A/P Assessment and plan (1) S/P laparoscopic hysterectomy: Code(s): Z90.710 - Acquired absence of both cervix and uterus Status: Acute Postoperative Procedures: Procedures Operation Date: 05/23/24 07:30 Actual Procedure Side Surgeon p Robotic Assisted Total Laparoscopic Hysterectomy with Bilateral Salpingectomy, Cystoscopy Bilateral Trini Baker MD Postoperative day: 1 Postoperative status: doing well Postoperative plan: routine post-op care and discharge Time Spent With Patient Time: Total time spent is greater than 50% in coordination of care (as documented) at patient's floor/unit and/or counseling patient: Time with patient: less than 15 minutes OPERATIONS INTELLIGENCE- PN:Subj Post-Op Subjective Date/time seen: 05/24/24 09:21 Interval history: POD#1 Freida reports doing well today. Had significant N/V until about 1800, then it finally resolved. Her pain is controlled with PO meds. She has tolerated crackers overnight, and CLD. She denies any vaginal bleeding. She has voided. She has ambulated and denies any symptoms of anemia. Review of Systems Review of Systems: All systems reviewed & are unremarkable except as noted in HPI and below (HPI) Constitutional: Constitutional: Denies chills, Denies fever(s) and Denies headache(s) Eyes: Eyes: Denies change in vision ENT: Denies dizziness and Denies headache(s) Cardiovascular: Cardiovascular: Denies chest pain and Denies rapid heart rate Respiratory: Respiratory: Denies cough Genitourinary: Genitourinary: Denies abnormal vaginal bleeding Neurologic: Denies dizziness and Denies headache(s) Exam Const: General: cooperative, healthy appearing, comfortable and no acute distress Orientation/consciousness: patient oriented x3 Resp: Effort & Inspection: normal respiratory effort Auscultation: clear to auscultation bilaterally Cardio: Rate: regular rate GI: Inspection: normal to inspection and incision ( LSC incisions c/d/i) GI Palp: Yes abdominal tenderness (appropriate) and Yes Soft to palpation Auscultation: normal bowel sounds : Other: normal bleeding on pad Skin: General skin exam: normal color Neuro: General: patient oriented x3 Psych: Appearance: grossly normal Affect: normal affect Attitude: cooperative OPERATIONS INTELLIGENCE - PN: Obj Data Vital Signs Vital Signs: Vital Signs - 24 hr 05/23/24 09:58 05/23/24 10:10 05/23/24 10:13 Temperature 97.4 F L Pulse Rate 62 53 L Respiratory Rate 17 18 Blood Pressure 97/54 L 95/62 L Pulse Oximetry 100 100 100 Oxygen Delivery Simple Face Mask Simple Face Mask Simple Face Mask Oxygen Flow Rate 8 8 8 05/23/24 10:25 05/23/24 10:40 05/23/24 10:43 Temperature Pulse Rate 55 L 77 Respiratory Rate 16 15 Blood Pressure 102/58 L 106/67 Pulse Oximetry 100 100 100 Oxygen Delivery Simple Face Mask Room Air Room Air Oxygen Flow Rate 8 05/23/24 10:55 05/23/24 11:10 05/23/24 11:25 Temperature Pulse Rate 79 75 83 Respiratory Rate 16 20 18 Blood Pressure 101/59 L 104/63 99/64 L Pulse Oximetry 97 97 96 Oxygen Delivery Room Air Room Air Room Air Oxygen Flow Rate 05/23/24 11:40 05/23/24 16:15 05/23/24 20:36 Temperature 97.9 F 97.5 F L 98.3 F Pulse Rate 58 L 81 82 Respiratory Rate 14 20 14 Blood Pressure 111/68 128/74 110/63 Pulse Oximetry 95 100 100 Oxygen Delivery Oxygen Flow Rate 05/24/24 00:30 05/24/24 05:02 05/24/24 07:35 Temperature 98.5 F 98.6 F 99 F Pulse Rate 85 64 88 Respiratory Rate 14 14 16 Blood Pressure 122/74 98/65 L 98/62 L Pulse Oximetry 99 99 99 Oxygen Delivery Oxygen Flow Rate Intake/Output Intake/Output: Intake & Output 05/21/24 05/22/24 05/23/24 05/24/24 23:59 23:59 23:59 23:59 Intake Total 2950 700 Output Total 1300 Balance 1650 700 Meds/Results Medications: Active Medications Generic Name Dose Route Start Last Admin Trade Name Freq PRN Reason Stop Dose Admin Acetaminophen 1,000 mg 05/23/24 12:00 05/24/24 07:39 Acetaminophen 500 Mg Tablet PO 1,000 mg Q6HR DANIELLE Administration Docusate Sodium 100 mg 05/23/24 17:00 05/24/24 07:39 Docusate Sodium 100 Mg Capsule PO 100 mg BID DANIELLE Administration Hydromorphone HCl 0.5 mg 05/23/24 11:58 05/23/24 17:05 Hydromorphone Hcl Inj (*Crx) 1 Mg/Ml Syr IV PUSH 0.5 mg Q2H PRN Administration Breakthrough Pain Rated 4-6 or NPO Ibuprofen 600 mg 05/24/24 06:00 05/24/24 07:39 Ibuprofen 600 Mg Tablet PO 600 mg Q6HR DANIELLE Administration Naloxone HCl 0.1 mg 05/23/24 11:58 Naloxone Hcl 0.4 Mg/Ml Vial IV PUSH Q2M PRN Respiratory rate less than 10 Ondansetron HCl 4 mg 05/23/24 11:58 05/23/24 17:12 Ondansetron Inj 4 Mg/2 Ml Vial IV PUSH 4 mg Q6H PRN Administration Nausea And Vomiting Oxycodone HCl 5 mg 05/23/24 11:58 Oxycodone Hcl (*Crx) 5 Mg Tab Ir PO Q4H PRN Pain Rated 4-6 Oxycodone HCl 10 mg 05/23/24 11:58 Oxycodone Hcl (*Crx) 5 Mg Tab Ir PO Q6H PRN Pain Rated 7-10 Promethazine HCl 12.5 mg 05/23/24 14:34 05/23/24 19:04 Promethazine Hcl 25 Mg/Ml Ampul IV PUSH 12.5 mg Q4H PRN Administration Nausea And Vomiting Simethicone 80 mg 05/23/24 12:00 05/24/24 07:38 Simethicone 80 Mg Tab.Chew PO 80 mg TIDWM DANIELLE Administration Labs 05/24/24 04:18 05/24/24 04:18 Labs: Laboratory Results - last 24 hr 05/24/24 04:18 WBC 14.2 H RBC 4.47 Hgb 14.2 Hct 41.7 MCV 93.3 MCH 31.8 MCHC 34.1 RDW 11.8 Plt Count 207 MPV 10.0 Immature Gran % (Auto) 0.4 Neut % (Auto) 79.6 H Lymph % (Auto) 12.3 L Door % (Auto) 7.2 Eos % (Auto) 0.1 Baso % (Auto) 0.4 Lymph # (Auto) 1.74 Door # (Auto) 1.0 H Eos # (Auto) 0.0 Baso # (Auto) 0.1 Abs Immat Gran (auto) 0.05 H Absolute Neuts (auto) 11.3 H Absolute Nucleated RBC 0.000 Nucleated RBC % 0.0 Sodium 137 Potassium 3.8 Chloride 111 H Carbon Dioxide 22 Anion Gap 4 BUN 7 Creatinine 0.80 Estim Creat Clear Calc 62 Estimated GFR > 60 Glucose 107 Calcium 8.4
--- OUTSIDE RECORDS SUMMARY | 2024-05-30 02:29 | XMS_ITS | Encounter Summary ---
Author Organization [facility] Address [address] [place] [address]. 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 - 05/29/2020 11:59 PM CONVEYOR LINE BAKERY WORKER Hospital Encounter [facility] [address] [place] [address] [place] [address] Aravind Kimbrough MD Discharge Disposition: Home or Self Care (Routine Discharge) Social History Tobacco Use Types Packs/Day Years Used Date Smoking Tobacco: Never Assessed Comments No Sex and Gender Information Value Date Recorded Sex Assigned at Not on file Legal Sex Female 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
--- OUTSIDE RECORDS SUMMARY | 2024-05-30 02:29 | XMS_ITS | Encounter Summary ---
Author Organization [facility] Address [address] [place] [address]. 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
--- OUTSIDE RECORDS SUMMARY | 2024-05-30 02:29 | XMS_ITS | Encounter Summary ---
Author Organization [facility] Address [address] [place] [address]. [place], [place] [address] [place] [address] Care Team Providers Care Subscription Agent Name Role Phone Jesús Davenport MD Primary Care Provider [phone] Encounter Details Date Type Department Care Team (Latest Contact Info) Description 03/22/2019 2:50 PM CDT - 03/22/2019 11:59 PM CDT Hospital Encounter [facility] [address] [place] [address] [place] [address] Beckie Krishnamurthy MD [address] FLO[address] [place] [id number] Discharge Disposition: Home or Self Care (Routine Discharge) Social History Tobacco Use Types Packs/Day Years Used Date Smoking Tobacco: Never Assessed Comments No Sex and Gender Information Value Date Recorded Sex Assigned at Not on file 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 Gender Identity Not on file Sexual Orientation Not on file documented as of this encounter Plan of Treatment Not on file documented as of this encounter Procedures Procedure Name Priority Date/Time Associated Diagnosis Comments CBC W/DIFF AUTOMATED Routine 03/22/2019 3:25 PM CDT Abnormal uterine bleeding documented in this encounter Results * (ABNORMAL) CBC W/DIFF AUTOMATED (03/22/2019 3:25 PM CDT) WBC 5.7 4.5 - 10.8 x10'3/uL 03/22/2019 3:32 PM CDT [facility] RBC 4.09(L) 4.10 - 5.40 x10'6/uL 03/22/2019 3:32 PM CDT [facility] HGB 10.8(L) 12.0 - 16.0 G/DL 03/22/2019 3:32 PM CDT [facility] HCT 34.3(L) 36.0 - 47.0 % 03/22/2019 3:32 PM CDT [facility] MCV 83.9 78.0 - 100.0 FL 03/22/2019 3:32 PM CDT [facility] MCH 26.4(L) 27.0 - 31.0 PG 03/22/2019 3:32 PM CDT [facility] MCHC 31.5(L) 33.0 - 36.0 G/DL 03/22/2019 3:32 PM CDT [facility] RDW 14.5 11.5 - 14.5 % 03/22/2019 3:32 PM CDT [facility] PLT 216 150 - 350 x10'3/uL 03/22/2019 3:32 PM CDT [facility] MPV 10.6(H) 7.4 - 10.4 FL 03/22/2019 3:32 PM CDT [facility] DIFFERENTIAL COMMENT NORMAL REFERENCE RANGE NOT ESTABLISHED FOR THE PROPORTIONAL LEUKOCYTE DIFFERENTIAL. 03/22/2019 3:32 PM CDT [facility] SEG NEUTROPHILS 62.9 % 9 3:32 PM CDT [facility] LYMPHOCYTES 22.7 % 03/22/2019 3:32 PM CDT [facility] MONOCYTES 11.4 % 03/22/2019 3:32 PM CDT [facility] EOSINOPHILS 1.9 % 03/22/2019 3:32 PM CDT [facility] BASOPHILS 0.9 % 03/22/2019 3:32 PM CDT [facility] IMMATURE GRANS % 0.2 % 03/22/20 19 3:32 PM CDT [facility] NRBC 0.0 % 03/22/2019 3:32 PM CDT [facility] ABS. NEUTROPHILS 3.60 1.60 - 8.30 x10'3/uL 03/22/2019 3:32 PM CDT [facility] ABS. LYMPHOCYTES 1.30 0.80 - 4.70 x10'3/uL 03/22/2019 3:32 PM CDT [facility] ABS. MONOCYTES 0.65 0.00 - 1.50 x10'3/uL 03/22/2019 3:32 PM CDT [facility] ABS. EOSINOPHILS 0.11 0.00 - 0.40 x10'3/uL 03/22/2019 3:32 PM CDT [facility] ABS. BASOPHILS 0.05 0.00 - 0.20 x10'3/uL 03/22/2019 3:32 PM CDT [facility] ABS. IMMATURE GRANULOCYTES 0.01 0.00 - 0.03 x10'3/uL 03/22/2019 3:32 PM CDT [facility] ABS. NUCLEATED RBC'S 0.00 0.00 x10'3/uL 03/22/2019 3:32 PM CDT [facility] 03/22/2019 3:25 PM CDT us Beckie Krishnamurthy MD LABORATORY Final Result [place] [id number] [place] [address], documented in this encounter Visit Diagnoses Diagnosis Abnormal uterine bleeding Unspecified disorder of menstruation and other abnormal bleeding from female genital tract documented in this encounter Care Teams Subscription Agent Relationship Specialty Start Date End Date Jesús Davenport MD [address] [place] [address] PCP - General FAMILY PRACTICE 03/01/19 documented as of this encounter
--- OUTSIDE RECORDS SUMMARY | 2024-05-30 02:29 | XMS_ITS | Encounter Summary ---
Author Organization [facility] Address [address] [place] [address]. 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
--- OUTSIDE RECORDS SUMMARY | 2024-05-30 02:29 | XMS_ITS | Clinical Summary ---
Author Organization [facility] Address [address] [place] [address]. 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 Gender Identity Not on file Sexual Orientation Not on file Last Filed Vital Signs Vital Sign Reading Time Taken Comments Blood Pressure 106/65 03/10/2019 8:39 AM CDT Pulse 89 03/10/2019 8:39 AM CDT Temperature 36.2 ??C (97.2 ??F) 03/10/2019 6:26 AM CD T Respiratory Rate 18 03/10/2019 8:39 AM CDT Oxygen Saturation 99% 03/10/2019 7:43 AM CDT Inhaled Oxygen Concentration - - Weight 63.5 kg (140 lb) 03/10/2019 6:26 AM CDT Height 152.4 cm (5') 03/10/2019 6:26 AM CDT Body Mass Index 27.34 03/10/2019 6:26 AM CDT Plan of Treatment Health Maintenance Due Date Last Done Comments Cervical Cancer Screening Pap Smear (Age 30 to 64) Every 3 Years 1977 Colorectal Cancer Screening Colonoscopy (10 Years) 1977 Annual Physical 02/17/1980 Hepatitis C 1995 DTaP, Tdap and Td Vaccines (1 - Tdap) 02/17/1996 Cervical Cancer Screening Pap with HPV Testing (Age 30 to 64) Every 5 Years 2007 Cervical Cancer Screening with HPV 2007 COVID-19 Vaccine ( season) 2024 06/26/2020, 05/29/2020 Influenza Adult (#1) 2024 03/27/2009 Mammogram Screening 09/15/2025 09/16/2023, 08/21/2023, 06/25/2022, Additional history exists Hepatitis B Vaccines Completed 02/14/1995, 09/11/1994, 08/11/1994 Pneumococcal Vaccine: Pediatrics (0 to 5 Years) and At-Risk Patients (6 to 64 Years) Aged Out 03/29/2004 No longer eligible based on patient's age to complete this topic Meningococcal Vaccine Aged Out No aris alberto eligible based on patient's age to complete this topic RSV Immunizations Under 20 Months Aged Out No longer eligible based on patient's age to complete this topic Procedures Procedure Name Priority Date/Time Associated Diagnosis Comments MG DIAG W LORIE LT DIGI Routine 09/16/2023 10:58 AM CDT Other specified disorders of breast from Last 3 Months or Most Recently Relevant to Health Maintenance Results * MG DIAG W LORIE LT DIGI (09/16/2023 10:58 AM CDT) Anatomical Region Laterality Modality Breast Left Mammography, Rad iographic Imaging 09/16/2023 11:4 5 AM CDT Addenda Addendum by Alejandro Herrera MD on 09/16/2023 4:24 PM CDT Addendum: This addendum supersedes the original report from earlier today. In addition to the indeterminate lesion for which cyst aspiration/biopsy is recommended, there was a 11 x 8 x 4 mm oval structure oriented parallel to the skin surface, identified at about the 12:00 position, with features more consistent with a benign cluster of fibrocystic change. This area can be potentially reassessed by the radiologist performing the biopsy procedure, and either sampled at that time or followed up along with the routine imaging follow-up that is performed after aspiration/biopsy of the other nodule. Ordered By: MOLLY HENSLEY Interpreted By: Alejandro Herrera MD, 09/16/2023 3:46 PM Impressions 09/16/2023 11:58 AM CDT IMPRESSION: BI-RADS 4A: SUSPICIOUS ABNORMALITY (LOW INDEX OF SUSPICION ESTIMATED 2-10% LIKELIHOOD OF MALIGNANCY). ULTRASOUND-GUIDED CYST ASPIRATION AND POSSIBLE CORE BIOPSY RECOMMENDED. Ordered By: MOLLY HENSLEY Interpreted By: Alejandro Herrera MD, 09/16/2023 11:45 AM Narrative 09/16/2023 11:58 AM CDT Examination: MG OLVIN W LORIE LT DIGI, US BREAST LT BIRAD LTD Exam time: 09/16/2023 10:34 AM Clinical history: Abnormality on screening exam. Comparison: Screening study from 08/21/2023. Technique: Full compression true lateral and spot compression CC and MLO digital mammographic views of the left breast, were obtained. Study was interpreted with computer-aided detection (CAD) and tomosynthesis image acquisition. Targeted left breast ultrasound also performed. Findings: DIAGNOSTIC LEFT MAMMOGRAM: There is a heterogeneously dense nodular breast parenchyma. In the superior left breast, just lateral to the midline at mid to anterior depth, there is a persistent nodular density. No associated architectural distortion or suspicious calcification is seen. DIAGNOSTIC LEFT BREAST ULTRASOUND: At the 1:00 radian, about 2 cm from the nipple, there is a oval hypoechoic structure with some suggested posterior enhancement and marginal shadowing. There appears to be some peripheral vascularity. This structure is 4 x 4 x 3 mm. Although this could represent a small complex or debris- containing cyst, it is technically indeterminate in nature. After discussion with the patient regarding the options of biopsy versus follow- up imaging, establishment of a tissue diagnosis is preferred and is a reasonable alternative to imaging surveillance. The lesion is amenable to an ultrasound- guided attempted cyst aspiration and core biopsy if indicated. Molly Hensley MD MAMMO Edited Result - Final from Last 3 Months or Most Recently Relevant to Health Maintenance Insurance [facility] Care Teams Hot Mix Operator Relationship Specialty Start Date End Date Jesús Davenport MD [address] [place] [address] PCP - General FAMILY PRACTICE 03/01/19
--- OUTSIDE RECORDS SUMMARY | 2024-05-30 02:29 | XMS_ITS | Encounter Summary ---
Author Organization [facility] Address [address] [place] [address]. [place], [place] [address] [place] [address] Care Team Providers Care Founding Partner Name Role Phone Jesús Davenport MD Primary Care Provider [phone] Reason for Visit * Imaging (Routine) - Closed Specialty Diagnoses / Procedures Referred By Contac t Referred To Contact RADIOLOGY Diagnoses Visit for screening mammogram Procedures MG SCREENING W LORIE ELO DIGI Beckie Krishnamurthy MD [address] [place] [address] Phone: tel: fax: Referral ID Status Reason Start Date Expiration Date Visits Re quested Visits Authorized [id number] Closed 06/10/2022 06/10/2023 1 1 Encounter Details Date Type Department Care Team (Latest Contact Info) Description 06/25/2022 3:43 PM TUMBLER DYEING MACHINE OPERATOR - 06/25/2022 11:59 PM TUMBLER DYEING MACHINE OPERATOR Hospital Encounter [facility] [address] [place] [address] Beckie Krishnamurthy MD [address] [place] [address] Discharge Disposition: Home or Self Care (Routine Discharge) Social History Tobacco Use Types Packs/Day Years Used Date Smoking Tobacco: Never Assessed Comments No Sex and Gender Information Value Date Recorded Sex Assigned at Not on file Legal Sex Female 9:42 PM TUMBLER DYEING MACHINE OPERATOR Gender Identity Not on file Sexual Orientation Not on file COVID-19 Exposure Response Date Recorded In the last 10 days, have yo u been in contact with someone who was confirmed or suspected to have Coronavirus/COVID-19? No / Unsure 06/25/2022 3:42 PM TUMBLER DYEING MACHINE OPERATOR documented as of this encounter Plan of Treatment Not on file documented as of this encounter Procedures Procedure Name Priority Date/Time Associated Diagnosis Comments MG SCREENING W LORIE ELO DIGI Routine 06/25/2022 4:05 PM TUMBLER DYEING MACHINE OPERATOR Visit for screening mammogram documented in this encounter Results * MG SCREENING W LORIE ELO DIGI (06/25/2022 4:05 PM TUMBLER DYEING MACHINE OPERATOR) Anatomical Region Laterality Modality Breast Bilateral Mammography 06/27/2022 1:55 PM TUMBLER DYEING MACHINE OPERATOR Narrative 06/27/2022 1:56 PM TUMBLER DYEING MACHINE OPERATOR Examination: Digital screening mammogram with CAD. Clinical history: Asymptomatic patient presents for routine screening. Comparison: 06/18/2021, 05/18/2020, 03/01/2019, 09/03/2017. Technique: Bilateral digital mammograms. The exam was interpreted with the use of a computer-aided detection (CAD) system. ??Additional 3-D tomosynthesis images were acquired. Tissue density: The breast tissue is heterogeneously dense. Findings: The breast tissue is heterogeneously dense. The dense tissue may obscure some lesions mammographically. ?? Benign-appearing calcification noted. No suspicious mass, microcalcification or area of architectural distortion can be identified. From a mammographic standpoint, routine followup in one year would seem adequate. IMPRESSION: No suspicious change since the previous exams. Recommendation: 1: Routine Screening ??Bilateral ??in 1 Year Assessment: ACR BI-RADS 2 - BENIGN FINDING(S) Ordered By: BECKIE KRISHNAMURTHY Interpreted By: Ralph Martinez MD, 06/27/2022 1:55 PM us Beckie Krishnamurthy MD MAMMO Final Result documented in this encounter Visit Diagnoses Not on filedocumented in this encounter Care Teams Founding Partner Relationship Specialty Start Date End Date Jesús Davenport MD [address] [place] [address] PCP - General FAMILY PRACTICE 03/01/19 documented as of this encounter
--- OUTSIDE RECORDS SUMMARY | 2024-05-30 02:29 | XMS_ITS | Encounter Summary ---
Author Organization [facility] Address [address] [place] [address]. [place], [place] [address] [place] [address] Care Team Providers Care Aboriginal Liaison Officer Name Role Phone Unavailable Primary Care Provider Unavailabl e Encounter Details Date Type Department Care Team (Late st Contact Info) Description 09/03/[address] [facility] [address] [place] [address] Beckie Young MD [address] [place] [phone] Social History Tobacco Use Types Packs/Day Years Used Date Smoking Tobacco: Never Assessed Comments Unknown Sex and Gender Information Value Date Recorded Sex Assigned at Not on file Legal Sex Female 9:42 PM ADZ WORKER Gender Identity Not on file Sexual Orientation Not on file documented as of this encounter Plan of Treatment Not on file documented as of this encounter Visit Diagnoses Not on filedocumented in this encounter
--- OUTSIDE RECORDS SUMMARY | 2024-05-30 02:29 | XMS_ITS | Encounter Summary ---
Author Organization [facility] Address [address] [place] [address]. [place], [place] [address] [place] [address] Care Team Providers Care Police Crime Scene Technician Name Role Phone Unavailable Primary Care Provider Unavailabl e Encounter Details Date Type Department Care Team (Late st Contact Info) Description 05/19/2007 Abstract [facility] [address] [place] [address] Beckie Young MD [address] [place] [address] Social History Tobacco Use Types Packs/Day Years Used Date Smoking Tobacco: Never Assessed Comments Unknown Sex and Gender Information Value Date Recorded Sex Assigned at Not on file Legal Sex Female 9:42 PM SALES ENGAGEMENT MANAGER Gender Identity Not on file Sexual Orientation Not on file documented as of this encounter Plan of Treatment Not on file documented as of this encounter Visit Diagnoses Not on filedocumented in this encounter
--- OUTSIDE RECORDS SUMMARY | 2024-05-30 02:29 | XMS_ITS | Encounter Summary ---
Author Organization [facility] Address [address] [place] [address]. [place], [place] [address] [place] [address] Care Team Providers Care Communication And Outreach Manager Name Role Phone Jesús Davenport MD Primary Care Provider [phone] Reason for Visit * Imaging (Routine) - Closed Specialty Diagnoses / Procedures Referred By Contac t Referred To Contact RADIOLOGY Diagnoses Visit for screening mammogram Procedures MG SCREENING W LORIE ELO Beckie Davis MD [address] [place] [address] Phone: tel: fax: Referral ID Status Reason Start Date Expiration Date Visits Re quested Visits Authorized [id number] Closed 02/22/2019 03/24/2020 1 1 Encounter Details Date Type Department Care Team (Latest Contact Info) Description 03/01/2019 6:46 AM CDT - 03/01/2019 11:59 PM CDT Hospital Encounter [facility] [address] [place] [address] Beckie Krishnamurthy MD [address] [place] [address] Discharge Disposition: Home or Self Care (Routine Discharge) Social History Tobacco Use Types Packs/Day Years Used Date Smoking Tobacco: Never Assessed Comments Unknown Sex and Gender Information Value Date Recorded Sex Assigned at Not on file Legal Sex Female 9:42 PM JEWELRY FACER Gender Identity Not on file Sexual Orientation Not on file documented as of this encounter Plan of Treatment Not on file documented as of this encounter Procedures Procedure Name Priority Date/Time Associated Diagnosis Comments MG SCREENING W LORIE ELO DIGI Routine 03/01/2019 7:06 AM CDT Visit for screening mammogram documented in this encounter Results * MG SCREENING W LORIE ELO DIGI (03/01/2019 7:06 AM CDT) Anatomical Region Laterality Modality Breast Bilateral Mammography 03/01/2019 4:57 PM CDT Impressions 03/01/2019 4:58 PM CDT IMPRESSION: No suspicious change since 09/03/2017. Recommendation: 1: Routine screening mammogram ??Bilateral ?? in 1 Year Assessment: ACR BI-RADS Category 2 - Benign. Interpreted By: Ralph Martinez, 03/01/2019 4:57 PM Narrative 03/01/2019 4:58 PM CDT Examination: Digital screening mammogram with CAD. Clinical history: Asymptomatic patient presents for routine screening. Comparison: 09/03/2017. Technique: Bilateral digital mammograms. The exam [...] followup in one year would seem adequate. Beckie Krishnamurthy MD MAMMO Final Result documented in this encounter Visit Diagnoses Not on filedocumented in this encounter Care Teams Communication And Outreach Manager Relationship Specialty Start Date End Date Jesús Davenport MD [address] [place] [address] PCP - General FAMILY PRACTICE 03/01/19 documented as of this encounter
--- OUTSIDE RECORDS SUMMARY | 2024-05-30 02:29 | XMS_ITS | Encounter Summary ---
Author Organization [facility] Address [address] [place] [address]. [place], [place] [address] [place] [address] Care Team Providers Care Linseed Oil Order Filler Name Role Phone Unavailable Primary Care Provider Unavailabl e Encounter Details Date Type Department Care Team (Late st Contact Info) Description 09/03/2017 Abstract [facility] [address] [place] [address] Beckie Krishnamurthy MD [address] [place] [address] Social History Tobacco Use Types Packs/Day Years Used Date Smoking Tobacco: Never Assessed Comments Unknown Sex and Gender Information Value Date Recorded Sex Assigned at Not on file Legal Sex Female 9:42 PM DISTRICT MEDICAL EXAMINER Gender Identity Not on file Sexual Orientation Not on file documented as of this encounter Plan of Treatment Not on file documented as of this encounter Visit Diagnoses Diagnosis Encounter for screening mammogram for malignant neoplasm of breast Other screening mammogram documented in this encounter
--- OUTSIDE RECORDS SUMMARY | 2024-05-30 02:29 | XMS_ITS | Encounter Summary ---
Author Organization [facility] Address [address] [place] [address]. [place], [place] [address] [place] [address] Care Team Providers Care Automobile Sales Representative Name Role Phone Jesús Davenport MD Primary Care Provider [phone] Encounter Details Date Type Department Care Team (Latest Contact Info) Description 08/21/2023 Travel Social History Tobacco Use Types Packs/Day Years Used Date Smoking Tobacco: Never Assessed Comments No Sex and Gender Information Value Date Recorded Sex Assigned at Not on file Legal Sex Female 9:42 PM CONVERTIBLE SOFA BEDSPRING TESTER Gender Identity Not on file Sexual Orientation Not on file documented as of this encounter Plan of Treatment Not on file documented as of this encounter Visit Diagnoses Not on filedocumented in this encounter Care Teams Automobile Sales Representative Relationship Specialty Start Date End Date Jesús Davenport MD [address] [place] [address] PCP - General FAMILY PRACTICE 03/01/19 documented as of this encounter
--- OUTSIDE RECORDS SUMMARY | 2024-05-30 02:29 | XMS_ITS | Encounter Summary ---
Author Organization [facility] Address [address] [place] [address]. [place], [place] [address] [place] [address] Care Team Providers Care Trolley Cleaner Name Role Phone Unavailable Primary Care Provider Unavailabl e Encounter Details Date Type Department Care Team (Latest Contact Info) Description 01/29/2016 Abstract [facility] Social History Tobacco Use Types Packs/Day Years Used Date Smoking Tobacco: Never Assessed Comments Unknown Sex and Gender Information Value Date Recorded Sex Assigned at Not on file Legal Sex Female 9:42 PM GENERAL LABOR Gender Identity Not on file Sexual Orientation Not on file documented as of this encounter Plan of Treatment Not on file documented as of this encounter Visit Diagnoses Not on filedocumented in this encounter
--- OUTSIDE RECORDS SUMMARY | 2024-05-30 02:29 | XMS_ITS | Encounter Summary ---
Author Organization [facility] Address [address] [place] [address]. [place], [place] [address] [place] [address] Care Team Providers Care Tennis Court Attendant Name Role Phone Unavailable Primary Care Provider Unavailabl e Encounter Details Date Type Department Care Team (Latest Contact Info) Description 02/19/2017 Abstract [facility] Social History Tobacco Use Types Packs/Day Years Used Date Smoking Tobacco: Never Assessed Comments Unknown Sex and Gender Information Value Date Recorded Sex Assigned at Not on file Legal Sex Female 9:42 PM HAT FINISHER Gender Identity Not on file Sexual Orientation Not on file documented as of this encounter Plan of Treatment Not on file documented as of this encounter Visit Diagnoses Not on filedocumented in this encounter
--- OUTSIDE RECORDS SUMMARY | 2024-05-30 02:29 | XMS_ITS | Encounter Summary ---
Author Organization [facility] Address [address] [place] [address]. [place] [address] [place] [address] Care Team Providers Care Chip Mucker Name Role Phone Jesús Davenport MD Primary Care Provider [phone] Encounter Details Date Type Department Care Team (Late st Contact Info) Description 07/07/2020 Orders Only [facility] [address] [place] [address] Ilene Harmon, PA-C [address] [place] [address] Social History Tobacco Use Types Packs/Day Years Used Date Smoking Tobacco: Never Assessed Comments No Sex and Gender Information Value Date Recorded Sex Assigned at Not on file Legal Sex Female 9:42 PM WARP DRESSER Gender Identity Not on file Sexual Orientation Not on file COVID-19 Exposure Response Date Recorded In the last month, have you been in contact with someone who was confirmed or suspected to have Coronavirus / COVID-19? No / Unsure 07/07/2020 8:33 AM WARP DRESSER documented as of this encounter Plan of Treatment Not on file documented as of this encounter Results * PRE-SURGICAL/PRE-PROCEDURE CORONAVIRUS (COVID 19) (07/07/2020 8:45 AM WARP DRESSER) CORONAVIRUS SARS COV 2 PCR (RESP) NOT DETECTED NOT DETECTED 07/08/2020 4:56 PM WARP DRESSER [facility] Comment: A Not Detected (negative) test result for this test means that SARS- CoV-2 RNA was not present in the specimen above the limit of detection. A negative result does not rule out the possibility of COVID-19 and should not be used as the sole basis for treatment or patient management decisions. ??If COVID-19 is still suspected, based on exposure history together with other clinical findings, re-testing should be considered in consultation with public health authorities. Laboratory test results should always be considered in the context of clinical observations and epidemiological data in making a final diagnosis and patient management decisions. Please review the Fact Sheets and FDA authorized labeling available for health care providers and patients using the following websites: https://www.Mailbox.[facility]/home/Covid-19/HCP/QuestIVD/fact- sheet.html https://www.Mailbox.[facility]/home/Covid-19/Patients/ [employer]/fact-sheet.html This test has been authorized by the FDA under an Emergency Use Authorization (EUA) for use by authorized laboratories. Due to the current public health emergency, [facility] is receiving a high volume of samples from a wide variety of swabs and media for COVID-19 testing. In order to serve patients during this public health crisis, samples from appropriate clinical sources are being tested. Negative test results derived from specimens received in non-commercially manufactured viral collection and transport media, or in media and sample collection kits not yet authorized by FDA for COVID-19 testing should be cautiously evaluated and the patient potentially subjected to extra precautions such as additional clinical monitoring, including collection of an additional specimen. Methodology: ??Nucleic Acid Amplification Test (NAAT) includes RT-PCR or TMA Additional information about COVID-19 can be found at the [facility] [employer] website: www.Zedmo.[facility]/Covid19. Test performed at [facility] [address] ??[id number] Director: URIAH MALAGON DO,MPH FIRST TEST UNKNOWN 07/07/2020 9:00 AM [facility] EMPLOYED IN HEALTHCARE YES 07/07/2020 9:00 AM [facility] SYMPTOMATIC DEFINED BY CDC UNKNOWN 07/07/2020 9:00 AM [facility] DATE OF SYMPTOM ONSET UNKNOWN 07/07/2020 9:07 AM [facility] HOSPITALIZATION STATUS NO 07/07/2020 9:00 AM [facility] PATIENT IN ICU NO 07/07/2020 9:00 AM WARP DRESSER [facility] NO 07/07/2020 9:00 AM WARP DRESSER [facility] NOT 07/07/2020 9:00 AM WARP DRESSER [facility] PATIENT'S RACE WHITE OR 07/07/2020 9:00 AM WARP DRESSER [facility] ETHNICITY NONHISPANIC 07/07/2020 9:00 AM WARP DRESSER [facility] SOURCE (QST) NASOPHARYNGEAL SWAB 07/07/2020 9:00 AM WARP DRESSER [facility] NASOPHARYNGEAL SWAB / Unknown 07/07/2020 8:45 AM WARP DRESSER us Ilene Harmon PA-C MICROBIOLOGY - GENERAL KODAK DELEON Final Result [facility] [address] [employer] [place], [place] [address] [phone] [facility] [address] documented in this encounter Visit Diagnoses Diagnosis Close exposure to COVID-19 virus- Primary documented in this encounter Additional Health Concerns Infection Onset Date Last Indicated Resolved Time COVID-19 Rule Out 07/07/2020 07/07/2020 07/08/2020 4:56 PM WARP DRESSER documented as of this encounter Care Teams Chip Mucker Relationship Specialty Start Date End Date Jesús Davenport MD [address] [place] [address] PCP - General FAMILY PRACTICE 03/01/19 documented as of this encounter
--- OUTSIDE RECORDS SUMMARY | 2024-05-30 02:29 | XMS_ITS | Encounter Summary ---
Author Organization [facility] Address [address] [place] [address]. [place], [place] [address] [place], [place] [id number] Care Team Providers Care Network Programmer Name Role Phone Jesús Davenport MD Primary Care Provider [phone] Encounter Details Date Type Department Care Team (Latest Contact Info) Description 04/10/2020 7:29 AM INTERMEDIATE PROJECT MANAGER - 04/10/2020 11:59 PM INTERMEDIATE PROJECT MANAGER Hospital Encounter [facility] [address] [place] [address] Beckie Krishnamurthy MD [address] 1ST FLOOR [place] [id number] Discharge Disposition: Home or Self Care (Routine Discharge) Social History Tobacco Use Types Packs/Day Years Used Date Smoking Tobacco: Never Assessed Comments No Sex and Gender Information Value Date Recorded Sex Assigned at Not on file Legal Sex Female 9:42 PM INTERMEDIATE PROJECT MANAGER Gender Identity Not on file Sexual Orientation Not on file COVID-19 Exposure Response Date Recorded In the last month, have you been in contact with someone who was confirmed or suspected to have Coronavirus / COVID-19? No / Unsure 04/10/2020 7:28 AM INTERMEDIATE PROJECT MANAGER documented as of this encounter Plan of Treatment Not on file documented as of this encounter Procedures Procedure Name Priority Date/Time Associated Diagnosis Comments CORONAVIRUS (COVID 19) Routine 04/10/2020 7:40 AM INTERMEDIATE PROJECT MANAGER Screening for condition documented in this encounter Results * PRE-SURGICAL/PRE-PROCEDURE CORONAVIRUS (COVID 19) (04/10/2020 7:40 AM INTERMEDIATE PROJECT MANAGER) CORONAVIRUS SARS COV 2 PCR (RESP) NOT DETECTED NOT DETECTED 04/11/2020 9:56 PM [facility] [employer] [facility] Comment: A Not Detected (negative) test result [...] providers and patients using the following websites: https://www.FitWithMe.Hithru/home/Covid-19/HCP/NAAT/fact-sheet2 https://www.[employer]/home/Covid-19/Patients/NAAT/ fact-sheet2 This test has been authorized by the FDA under an Emergency Use Authorization (EUA) for use by authorized laboratories. Due to the current public health emergency, [facility] is receiving a high volume of samples [...] about COVID-19 can be found at the [facility] website: www.PlayBuzz.Hithru/Covid19. Test performed at [employer] [place] [address] [place], [place] ??[address] Director: URIAH MALAGON DO,MPH FIRST TEST YES 04/10/2020 7:34 AM [facility] EMPLOYED IN HEALTHCARE YES 04/10/2020 7:34 AM [facility] SYMPTOMATIC DEFINED BY CDC NO 04/10/2020 7:34 AM INTERMEDIATE PROJECT MANAGER [facility] DATE OF SYMPTOM ONSET NO 04/10/2020 7:41 AM INTERMEDIATE PROJECT MANAGER [facility] HOSPITALIZATION STATUS NO 04/10/2020 7:34 AM INTERMEDIATE PROJECT MANAGER [facility] PATIENT IN ICU NO 04/10/2020 7:34 AM INTERMEDIATE PROJECT MANAGER [facility] RESIDENT OF [facility] CARE NO 04/10/2020 7:34 AM INTERMEDIATE PROJECT MANAGER [facility] NOT 04/10/2020 7:34 AM INTERMEDIATE PROJECT MANAGER [facility] PATIENT'S RACE WHITE OR 04/10/2020 7:34 AM INTERMEDIATE PROJECT MANAGER [facility] ETHNICITY NONHISPANIC 04/10/2020 7:34 AM INTERMEDIATE PROJECT MANAGER [facility] SOURCE (QST) NASOPHARYNGEAL SWAB 04/10/2020 7:34 AM INTERMEDIATE PROJECT MANAGER [facility] NASOPHARYNGEAL SWAB / Unknown 04/10/2020 7:40 AM INTERMEDIATE PROJECT MANAGER us Beckie Krishnamurthy MD MICROBIOLOGY - GENERAL ORDERABLE S Final Result [facility] [address] [place] [address], [employer] [address] documented in this encounter Visit Diagnoses Diagnosis Screening for condition Screening for unspecified condition documented in this encounter Additional Health Concerns Infection Onset Date Last Indicated Resolved Time COVID-19 Rule Out 04/10/2020 04/10/2020 04/11/2020 9:56 PM INTERMEDIATE PROJECT MANAGER documented as of this encounter Care Teams Network Programmer Relationship Specialty Start Date End Date Jesús Davenport MD [address] [place] [address] PCP - General FAMILY PRACTICE 03/01/19 documented as of this encounter
--- OUTSIDE RECORDS SUMMARY | 2024-05-30 02:29 | XMS_ITS | Encounter Summary ---
Author Organization [facility] Address [address] [place] [address]. [place], [place] [address] [place] [address] Care Team Providers Care Collar Setter Name Role Phone Unavailable Primary Care Provider Unavailabl e Encounter Details Date Type Department Care Team (Late st Contact Info) Description 09/07/[address] [facility] [address] [place] [address] Beckie Young MD [address] [place] [phone] Social History Tobacco Use Types Packs/Day Years Used Date Smoking Tobacco: Never Assessed Comments Unknown Sex and Gender Information Value Date Recorded Sex Assigned at Not on file Legal Sex Female 9:42 PM BOOKER Gender Identity Not on file Sexual Orientation Not on file documented as of this encounter Plan of Treatment Not on file documented as of this encounter Visit Diagnoses Not on filedocumented in this encounter
--- OUTSIDE RECORDS SUMMARY | 2024-05-30 02:29 | XMS_ITS | Encounter Summary ---
Author Organization [facility] Address [address] [place] [address]. [place], [place] [address] [place] [address] Care Team Providers Care Manager Advertising Name Role Phone Unavailable Primary Care Provider Unavailabl e Encounter Details Date Type Department Care Team (Late st Contact Info) Description 06/07/2005 Abstract [facility] [address] [place] [address] Beckie Young MD [address] [place] [address] Social History Tobacco Use Types Packs/Day Years Used Date Smoking Tobacco: Never Assessed Comments Unknown Sex and Gender Information Value Date Recorded Sex Assigned at Not on file Legal Sex Female 9:42 PM BATTERY TESTER FIELD Gender Identity Not on file Sexual Orientation Not on file documented as of this encounter Plan of Treatment Not on file documented as of this encounter Visit Diagnoses Not on filedocumented in this encounter
--- OUTSIDE RECORDS SUMMARY | 2024-05-30 02:29 | XMS_ITS | Encounter Summary ---
Author Organization [facility] Address [address] [place] [address]. [place], [place] [address] [place] [address] Care Team Providers Care Straight Knife Machine Cutter Name Role Phone Jesús Davenport MD Primary Care Provider [phone] Reason for Referral * Imaging (Routine) - Closed Specialty Diagnoses / Procedures Referred By Contac t Referred To Contact RADIOLOGY Diagnoses Other specified disorders of breast Procedures BREAST LT BIRAD [facility] BREAST LT BIRAD [facility] Molly Hensley MD [address] [place] [address] Phone: tel: fax: Referral ID Status Reason Start Date Expiration Date Visits Re quested Visits Authorized [id number] Closed 08/25/2023 08/24/2024 1 1 Encounter Details Date Type Department Care Team (Latest Contact Info) Description 09/16/2023 10:11 AM CDT - 09/16/2023 11:59 PM CDT Hospital Encounter [facility] [address] [place] [address] Molly Hensley MD [address] [place] [address] Discharge Disposition: Home or Self Care (Routine Discharge) Social History Tobacco Use Types Packs/Day Years Used Date Smoking Tobacco: Never Assessed Comments No Sex and Gender Information Value Date Recorded Sex Assigned at Not on file Legal Sex Female 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 Gender Identity Not on file Sexual Orientation Not on file documented as of this encounter Plan of Treatment Not on file documented as of this encounter Procedures Procedure Name Priority Date/Time Associated Diagnosis Comments US BREAST LT BIRAD LTD Routine 09/16/2023 11:34 AM CDT Other specified disorders of breast MG DIAG W LORIE LT DIGI Routine 09/16/2023 10:58 AM CDT Other specified disorders of breast documented in this encounter Results * US BREAST LT BIRAD LTD (09/16/2023 11:34 AM CDT) Anatomical Region Laterality Modality Breast Left Ultrasound, Radi ographic Imaging 09/16/2023 11:4 5 AM CDT Addenda [...] Narrative 09/16/2023 11:58 AM CDT Examination: MG DIAG W LORIE LT DIGI, US BREAST LT [employer] Exam time: 09/16/2023 10:34 AM Clinical [...] cyst aspiration and core biopsy if indicated. Procedure Note Alejandro Herrera MD - 09/16/2023 Examination: MG GARCIAG W LORIE LT DIGI, US BREAST LT [employer] Exam time: 09/16/2023 10:34 AM Clinical history: Abnormality on screening exam. Comparison: Screening study from 08/21/2023. Technique: Full compression true lateral and spot compression CC and MLOdigital mammographic views of the left breast, were obtained. Study wasinterpreted with computer-aided detection (CAD) and tomosynthesis imageacquisition. Targeted left breast ultrasound also performed. Findings: DIAGNOSTIC LEFT MAMMOGRAM: There is a heterogeneously dense nodular breastparenchyma. In the superior left breast, just lateral to the midline atmid to anterior depth, there is a persistent nodular density. Noassociated architectural distortion or suspicious calcification is seen. DIAGNOSTIC LEFT BREAST ULTRASOUND: At the 1:00 radian, about 2 cm from thenipple, there is a oval hypoechoic structure with some suggested posteriorenhancement and marginal shadowing. There appears to be some peripheralvascularity. This structure is 4 x 4 x 3 mm. Although this could representa small complex or debris-containing cyst, it is technically indeterminatein nature. After discussion with the patient regarding the options of biopsy versusfollow- up imaging, establishment of a tissue diagnosis is preferred and king reasonable alternative to imaging surveillance. The lesion is amenableto an ultrasound- guided attempted cyst aspiration and core biopsy ifindicated. IMPRESSION: BI-RADS 4A: SUSPICIOUS ABNORMALITY (LOW INDEX OF SUSPICION ESTIMATED 2- 10%LIKELIHOOD OF MALIGNANCY). ULTRASOUND-GUIDED CYST ASPIRATION AND POSSIBLE CORE BIOPSY RECOMMENDED. Ordered By: MOLLY HENSLEY Interpreted By: Alejandro Herrera MD, 09/16/2023 11:45 AM us Molly Hensley MD ULTRASOUND Edited Result - Final * MG DIAG W LORIE LT DIGI [...] Hensley MD MAMMO Edited Result - Final documented in this encounter Visit Diagnoses Diagnosis Other specified disorders of breast documented in this encounter Care Teams Straight Knife Machine Cutter Relationship Specialty Start Date End Date Jesús Davenport MD [address] [place] [address] PCP - General FAMILY PRACTICE 03/01/19 documented as of this encounter
--- OUTSIDE RECORDS SUMMARY | 2024-05-30 02:29 | XMS_ITS | Encounter Summary ---
Author Organization [facility] Address [address] [place] [address]. 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
--- OUTSIDE RECORDS SUMMARY | 2024-05-30 02:29 | XMS_ITS | Encounter Summary ---
Author Organization [facility] Address [address] [place] [address]. [place] [id number] Care Team Providers Care Breadman Name Role Phone Jesús Davenport MD Primary Care Provider [phone] Encounter Details Date Type Department Care Team (Latest Contact Info) Description 06/18/2021 Travel Social History Tobacco Use Types Packs/Day Years Used Date Smoking Tobacco: Never Assessed Comments No Sex and Gender Information Value Date Recorded Sex Assigned at Not on file Legal Sex Female 9:42 PM EGG PACKER Gender Identity Not on file Sexual Orientation Not on file COVID-19 Exposure Response Date Recorded In the last month, have you been in contact with someone who was confirmed or suspected to have Coronavirus / COVID-19? No / Unsure 06/18/2021 1:33 PM EGG PACKER documented as of this encounter Plan of Treatment Not on file documented as of this encounter Visit Diagnoses Not on filedocumented in this encounter Care Teams Breadman Relationship Specialty Start Date End Date Jesús Davenport MD [address] [place] [address] PCP - General FAMILY PRACTICE 03/01/19 documented as of this encounter
--- OUTSIDE RECORDS SUMMARY | 2024-05-30 02:29 | XMS_ITS | Encounter Summary ---
Author Organization [facility] Address [address] [place] [address]. 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 Yes 06/12/2021 7:20 AM DESK CLERKS SUPERVISOR documented as of this encounter Plan of Treatment Not on file documented as of this encounter Visit Diagnoses Not on filedocumented in this encounter Care Teams Off Premise Service Representative Relationship Specialty Start Date End Date Jesús Davenport MD [address] [place] [address] PCP - General FAMILY PRACTICE 03/01/19 documented as of this encounter
--- OUTSIDE RECORDS SUMMARY | 2024-05-30 02:29 | XMS_ITS | Encounter Summary ---
Author Organization [facility] Address [address] [place] [address]. 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 No / Unsure 05/29/2020 9:40 AM DEPOT MANAGER documented as of this encounter Plan of Treatment Not on file documented as of this encounter Visit Diagnoses Not on filedocumented in this encounter Care Teams Barn Worker Relationship Specialty Start Date End Date Jesús Davenport MD [address] [place] [address] PCP - General FAMILY PRACTICE 03/01/19 documented as of this encounter
--- OUTSIDE RECORDS SUMMARY | 2024-05-30 02:29 | XMS_ITS | Encounter Summary ---
Author Organization [facility] Address [address] [place] [address]. [place], [place] [address] [place] [address] Care Team Providers Care Buffing Wheel Former Machine Name Role Phone Jesús Davenport MD Primary Care Provider [phone] Reason for Visit * Imaging (Routine) - Closed Specialty Diagnoses / Procedures Referred By Contac t Referred To Contact RADIOLOGY Diagnoses Visit for screening mammogram Procedures MG SCREENING W LORIE ELO DIGI Beckie Krishnamurthy MD [address] [place] [address] Phone: tel: fax: Referral ID Status Reason Start Date Expiration Date Visits Re quested Visits Authorized [id number] Closed 05/29/2021 06/29/2022 1 1 Encounter Details Date Type Department Care Team (Latest Contact Info) Description 06/18/2021 1:30 PM PATIENT TRANSPORTER - 06/18/2021 11:59 PM PATIENT TRANSPORTER Hospital Encounter [facility] [address] [place] [address] Beckie Krishnamurthy MD [address] [place] [address] Discharge Disposition: Home or Self Care (Routine Discharge) Social History Tobacco Use Types Packs/Day Years Used Date Smoking Tobacco: Never Assessed Comments No Sex and Gender Information Value Date Recorded Sex Assigned at Not on file Legal Sex Female 9:42 PM PATIENT TRANSPORTER Gender Identity Not on file Sexual Orientation Not on file COVID-19 Exposure Response Date Recorded In the last month, have you been in contact with someone who was confirmed or suspected to have Coronavirus / COVID-19? No / Unsure 06/18/2021 1:33 PM PATIENT TRANSPORTER documented as of this encounter Plan of Treatment Not on file documented as of this encounter Procedures Procedure Name Priority Date/Time Associated Diagnosis Comments MG SCREENING W LORIE ELO DIGI Routine 06/18/2021 2:21 PM PATIENT TRANSPORTER Visit for screening mammogram documented in this encounter Results * MG SCREENING W LORIE ELO DIGI (06/18/2021 2:21 PM PATIENT TRANSPORTER) Anatomical Region Laterality Modality Breast Bilateral Mammography 06/18/2021 4:40 PM PATIENT TRANSPORTER Impressions 06/18/2021 4:40 PM PATIENT TRANSPORTER IMPRESSION: No suspicious change since the previous exams. Recommendation: 1: Routine Screening ??Bilateral ??in 1 Year Assessment: ACR BI-RADS 2 - BENIGN FINDING(S) Ordered By: BECKIE KRISHNAMURTHY Interpreted By: Ralph Martinez MD, 06/18/2021 4:40 PM Narrative 06/18/2021 4:40 PM PATIENT TRANSPORTER Examination: Digital screening mammogram with CAD. Clinical history: Asymptomatic patient presents for routine screening. Comparison: 05/18/2020, 03/01/2019, 09/03/2017. Technique: Bilateral digital mammograms. [...] followup in one year would seem adequate. us Beckie Krishnamurthy MD MAMMO Final Result documented in this encounter Visit Diagnoses Not on filedocumented in this encounter Care Teams Buffing Wheel Former Machine Relationship Specialty Start Date End Date Jesús Davenport MD [address] [place] [address] PCP - General FAMILY PRACTICE 03/01/19 documented as of this encounter
--- OUTSIDE RECORDS SUMMARY | 2024-05-30 02:29 | XMS_ITS | Encounter Summary ---
Author Organization [facility] Address [address] [place] [address]. 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
--- OUTSIDE RECORDS SUMMARY | 2024-05-30 02:29 | XMS_ITS | Encounter Summary ---
Author Organization [facility] Address [address] [place] [address]. [place], [place] [address] [place] [address] Care Team Providers Care Truck Crane Operator Helper Name Role Phone Jesús Davenport MD Primary Care Provider [phone] Encounter Details Date Type Department Care Team (Latest Contact Info) Description 09/21/2023 Travel Social History Tobacco Use Types Packs/Day Years Used Date Smoking Tobacco: Never Assessed Comments No Sex and Gender Information Value Date Recorded Sex Assigned at Not on file Legal Sex Female 9:42 PM MUSIC BOX MECHANIC Gender Identity Not on file Sexual Orientation Not on file documented as of this encounter Plan of Treatment Not on file documented as of this encounter Visit Diagnoses Not on filedocumented in this encounter Care Teams Truck Crane Operator Helper Relationship Specialty Start Date End Date Jesús Davenport MD [address] [place] [address] PCP - General FAMILY PRACTICE 03/01/19 documented as of this encounter
--- OUTSIDE RECORDS SUMMARY | 2024-05-30 02:29 | XMS_ITS | Encounter Summary ---
Author Organization [facility] Address [address] [place] [address]. [place], [place] [address] [place] [address] Care Team Providers Care Traffic Survey Technician Name Role Phone Jesús Davenport MD Primary Care Provider [phone] Encounter Details Date Type Department Care Team (Late st Contact Info) Description 07/07/2020 8:33 AM TRANSPLANT NURSE - 07/07/2020 11:59 PM TRANSPLANT NURSE Hospital Encounter [facility] [address] [address] Ilene Harmon, PA-C [address] [place] [address] Discharge Disposition: Home or Self Care (Routine Discharge) Social History Tobacco Use Types Packs/Day Years Used Date Smoking Tobacco: Never Assessed Comments No Sex and Gender Information Value Date Recorded Sex Assigned at Not on file Legal Sex Female 9:42 PM TRANSPLANT NURSE Gender Identity Not on file Sexual Orientation Not on file COVID-19 Exposure Response Date Recorded In the last month, have you been in contact with someone who was confirmed or suspected to have Coronavirus / COVID-19? No / Unsure 07/07/2020 8:33 AM TRANSPLANT NURSE documented as of this encounter Plan of Treatment Not on file documented as of this encounter Procedures Procedure Name Priority Date/Time Associated Diagnosis Comments CORONAVIRUS (COVID 19) Routine 07/07/2020 8:45 AM TRANSPLANT NURSE Close exposure to COVID-19 virus documented in this encounter Results * PRE-SURGICAL/PRE-PROCEDURE CORONAVIRUS (COVID 19) (07/07/2020 8:45 AM TRANSPLANT NURSE) CORONAVIRUS SARS COV 2 PCR (RESP) NOT DETECTED NOT DETECTED 07/08/2020 4:56 PM TRANSPLANT NURSE [facility] Comment: A Not Detected (negative) [...] providers and patients using the following websites: https://www.3nder.Orions Systems/home/Covid-19/HCP/Quest[facility]/fact- sheet.html https://www.3nder.Or[employer] Systems/home/Covid-19/Patients/ [employer]/fact-sheet.html This test has been authorized by the FDA under an Emergency Use Authorization (EUA) for use by authorized laboratories. Due to the current public health emergency, [facility] is receiving a high volume of samples [...] about COVID-19 can be found at the [facility] website: www.Liquid Scenarios.Or[employer] Systems/Covid19. Test performed at [facility] [place] [address] [place], [place] ??[phone] Director: URIAH MALAGON DO,MPH FIRST TEST UNKNOWN 07/07/2020 9:00 AM TRANSPLANT NURSE [facility] EMPLOYED IN HEALTHCARE YES 07/07/2020 9:00 AM TRANSPLANT NURSE [facility] SYMPTOMATIC DEFINED BY CDC UNKNOWN 07/07/2020 9:00 AM TRANSPLANT NURSE [facility] DATE OF SYMPTOM ONSET UNKNOWN 07/07/2020 9:07 AM TRANSPLANT NURSE [facility] HOSPITALIZATION STATUS NO 07/07/2020 9:00 AM TRANSPLANT NURSE [facility] PATIENT IN ICU NO 07/07/2020 9:00 AM TRANSPLANT NURSE [facility] RESIDENT OF [facility] NO 07/07/2020 9:00 AM TRANSPLANT NURSE [facility] NOT 07/07/2020 9:00 AM TRANSPLANT NURSE [facility] PATIENT'S RACE WHITE OR 07/07/2020 9:00 AM TRANSPLANT NURSE [facility] ETHNICITY NONHISPANIC 07/07/2020 9:00 AM TRANSPLANT NURSE [facility] SOURCE (QST) NASOPHARYNGEAL SWAB 07/07/2020 9:00 AM TRANSPLANT NURSE [facility] NASOPHARYNGEAL SWAB / Unknown 07/07/2020 8:45 AM TRANSPLANT NURSE us Ilene Harmon PA-C MICROBIOLOGY - GENERAL KODAK DELEON Final Result [facility] [place] [address], [facility] [address] documented in this encounter Visit Diagnoses Diagnosis Close exposure to COVID-19 virus documented in this encounter Additional Health Concerns Infection Onset Date Last Indicated Resolved Time COVID-19 Rule Out 07/07/2020 07/07/2020 07/08/2020 4:56 PM TRANSPLANT NURSE documented as of this encounter Care Teams Traffic Survey Technician Relationship Specialty Start Date End Date Jesús Davenport MD [address] [place] [address] PCP - General FAMILY PRACTICE 03/01/19 documented as of this encounter
--- OUTSIDE RECORDS SUMMARY | 2024-05-30 02:29 | XMS_ITS | Encounter Summary ---
Author Organization [facility] Address [address] [place] [address]. [place] [address] Care Team Providers Care Cold Meat Cook Name Role Phone Jesús Davenport MD Primary Care Provider [phone] Encounter Details Date Type Department Care Team (Latest Contact Info) Description 06/26/2020 12:00 PM TRIPPER - 06/26/2020 11:59 PM TRIPPER Hospital Encounter [facility] [place] [address] Aravind Kimbrough MD Discharge Disposition: Home or Self Care (Routine Discharge) Social History Tobacco Use Types Packs/Day Years Used Date Smoking Tobacco: Never Assessed Comments No Sex and Gender Information Value Date Recorded Sex Assigned at Not on file Legal Sex Female 9:42 PM TRIPPER Gender Identity Not on file Sexual Orientation Not on file COVID-19 Exposure Response Date Recorded In the last month, have you been in contact with someone who was confirmed or suspected to have Coronavirus / COVID-19? Yes 06/26/2020 10:58 AM TRIPPER documented as of this encounter Plan of Treatment Not on file documented as of this encounter Visit Diagnoses Diagnosis Need for prophylactic vaccination against viral disease- Primary Need for prophylactic vaccination and inoculation against other viral diseases documented in this encounter Care Teams Cold Meat Cook Relationship Specialty Start Date End Date Jesús Davenport MD [address] [place] [address] PCP - General FAMILY PRACTICE 03/01/19 documented as of this encounter
--- OUTSIDE RECORDS SUMMARY | 2024-05-30 02:29 | XMS_ITS | Encounter Summary ---
Author Organization [facility] Address [address] [place] [address]. 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
--- OUTSIDE RECORDS SUMMARY | 2024-05-30 02:29 | XMS_ITS | Encounter Summary ---
Author Organization [facility] Address [address] [place] [address]. [place], [place] [address] [place] [address] Care Team Providers Care Pvc Loader Name Role Phone Unavailable Primary Care Provider Unavailabl e Encounter Details Date Type Department Care Team (Late st Contact Info) Description 11/06/2005 Abstract [facility] [address] [place] [address] Beckie Young MD [address] [place] [address] Social History Tobacco Use Types Packs/Day Years Used Date Smoking Tobacco: Never Assessed Comments Unknown Sex and Gender Information Value Date Recorded Sex Assigned at Not on file Legal Sex Female 9:42 PM FOREIGN SERVICE OFFICER Gender Identity Not on file Sexual Orientation Not on file documented as of this encounter Plan of Treatment Not on file documented as of this encounter Visit Diagnoses Not on filedocumented in this encounter
--- OUTSIDE RECORDS SUMMARY | 2024-05-30 02:29 | XMS_ITS | Encounter Summary ---
Author Organization [facility] Address [address] [place] [address]. [place] [address] [place] [address] Care Team Providers Care Civil Design Specialist Name Role Phone Unavailable Primary Care Provider Unavailabl e Encounter Details Date Type Department Care Team (Late st Contact Info) Description 11/28/2002 Abstract [facility] [address] [place] [address] August Sevilla MD [address] [place] [address] Social History Tobacco Use Types Packs/Day Years Used Date Smoking Tobacco: Never Assessed Comments Unknown Sex and Gender Information Value Date Recorded Sex Assigned at Not on file Legal Sex Female 9:42 PM STORE DETECTIVE Gender Identity Not on file Sexual Orientation Not on file documented as of this encounter Plan of Treatment Not on file documented as of this encounter Visit Diagnoses Not on filedocumented in this encounter
--- OUTSIDE RECORDS SUMMARY | 2024-05-30 02:29 | XMS_ITS | Encounter Summary ---
Author Organization [facility] Address [address] [place] [address]. [place], [place] [address] [place] [address] Care Team Providers Care Senior Procurement Specialist Name Role Phone Unavailable Primary Care Provider Unavailabl e Encounter Details Date Type Department Care Team (Late st Contact Info) Description 03/23/2000 Abstract [facility] [address] [facility] [place] [address] Social History Tobacco Use Types Packs/Day Years Used Date Smoking Tobacco: Never Assessed Comments Unknown Sex and Gender Information Value Date Recorded Sex Assigned at Not on file Legal Sex Female 9:42 PM FURNITURE SPRAYER Gender Identity Not on file Sexual Orientation Not on file documented as of this encounter Plan of Treatment Not on file documented as of this encounter Visit Diagnoses Not on filedocumented in this encounter
--- OUTSIDE RECORDS SUMMARY | 2024-05-30 02:29 | XMS_ITS | Encounter Summary ---
Author Organization [facility] Address [address] [place] [address]. [place], [place] [address] [place] [address] Care Team Providers Care Stranding Machine Operator Helper Name Role Phone Unavailable Primary Care Provider Unavailabl e Encounter Details Date Type Department Care Team (Late st Contact Info) Description 06/17/2000 Abstract [facility] [address] [facility] [place] [address] Social History Tobacco Use Types Packs/Day Years Used Date Smoking Tobacco: Never Assessed Comments Unknown Sex and Gender Information Value Date Recorded Sex Assigned at Not on file Legal Sex Female 9:42 PM LOOPER FIXER Gender Identity Not on file Sexual Orientation Not on file documented as of this encounter Plan of Treatment Not on file documented as of this encounter Visit Diagnoses Not on filedocumented in this encounter
--- OUTSIDE RECORDS SUMMARY | 2024-05-30 02:29 | XMS_ITS | Encounter Summary ---
Author Organization [facility] Address [address] [place] [address]. [place], [place] [address] [place] [address] Care Team Providers Care Hydraulic Hammer Operator Name Role Phone Jesús Davenport MD Primary Care Provider [phone] Encounter Details Date Type Department Care Team (Late st Contact Info) Description 05/16/2020 Orders Only [facility] [place] [address] Aravind Kimbrough MD Social History Tobacco Use Types Packs/Day Years Used Date Smoking Tobacco: Never Assessed Comments No Sex and Gender Information Value Date Recorded Sex Assigned at Not on file Legal Sex Female 9:42 PM PERSONNEL ASSISTANT Gender Identity Not on file Sexual Orientation Not on file COVID-19 Exposure Response Date Recorded In the last month, have you been in contact with someone who was confirmed or suspected to have Coronavirus / COVID-19? No / Unsure 05/18/2020 12:12 PM PERSONNEL ASSISTANT documented as of this encounter Plan of Treatment Not on file documented as of this encounter Visit Diagnoses Not on filedocumented in this encounter Care Teams Hydraulic Hammer Operator Relationship Specialty Start Date End Date Jesús Davenport MD [address] [place] [address] PCP - General FAMILY PRACTICE 03/01/19 documented as of this encounter
--- OUTSIDE RECORDS SUMMARY | 2024-05-30 02:29 | XMS_ITS | Encounter Summary ---
Author Organization [facility] Address [address] [place] [address]. [place], [place] [address] [place] [address] Care Team Providers Care Coin Box Inspector Name Role Phone Jesús Davenport MD Primary Care Provider [phone] Encounter Details Date Type Department Care Team (Late st Contact Info) Description 04/10/2020 Orders Only [facility] [address] [place] [address] Beckie Krishnamurthy MD [address] [place] [id number] Social History Tobacco Use Types Packs/Day Years Used Date Smoking Tobacco: Never Assessed Comments No Sex and Gender Information Value Date Recorded Sex Assigned at Not on file Legal Sex Female 9:42 PM BRANCH OR DEPARTMENT CHIEF LIBRARIAN Gender Identity Not on file Sexual Orientation Not on file COVID-19 Exposure Response Date Recorded In the last month, have you been in contact with someone who was confirmed or suspected to have Coronavirus / COVID-19? No / Unsure 04/10/2020 7:28 AM BRANCH OR DEPARTMENT CHIEF LIBRARIAN documented as of this encounter Plan of Treatment Not on file documented as of this encounter Results * PRE-SURGICAL/PRE-PROCEDURE CORONAVIRUS (COVID 19) (04/10/2020 7:40 AM BRANCH OR DEPARTMENT CHIEF LIBRARIAN) CORONAVIRUS SARS COV 2 PCR (RESP) NOT DETECTED NOT DETECTED 04/11/2020 9:56 PM BRANCH OR DEPARTMENT CHIEF LIBRARIAN [facility] Comment: A Not Detected (negative) test result [...] providers and patients using the following websites: https://www.Voltaix.Per[employer]Yard/home/Covid-19/HCP/NAAT/fact-sheet2 https://www.[employer]/home/Covid-19/Patients/NAAT/ fact-sheet2 This test has been authorized by the FDA under an Emergency Use Authorization (EUA) for use by authorized laboratories. Due to the current public health emergency, [facility] is receiving a high volume of samples [...] about COVID-19 can be found at the [facility] website: www.Fiducioso Advisors.[employer]/Covid19. Test performed at [facility] [place] [id number] [place] [address] ??[phone] Director: URIAH MALAGON DO,MPH FIRST TEST YES 04/10/2020 7:34 AM [facility] EMPLOYED IN HEALTHCARE YES 04/10/2020 7:34 AM [facility] SYMPTOMATIC DEFINED BY CDC NO 04/10/2020 7:34 AM [facility] DATE OF SYMPTOM ONSET NO 04/10/2020 7:41 AM [facility] HOSPITALIZATION STATUS NO 04/10/2020 7:34 AM BRANCH OR DEPARTMENT CHIEF LIBRARIAN [facility] PATIENT IN ICU NO 04/10/2020 7:34 AM BRANCH OR DEPARTMENT CHIEF LIBRARIAN [facility] NO 04/10/2020 7:34 AM BRANCH OR DEPARTMENT CHIEF LIBRARIAN [facility] NOT 04/10/2020 7:34 AM BRANCH OR DEPARTMENT CHIEF LIBRARIAN [facility] PATIENT'S RACE WHITE OR 04/10/2020 7:34 AM BRANCH OR DEPARTMENT CHIEF LIBRARIAN [facility] ETHNICITY NONHISPANIC 04/10/2020 7:34 AM BRANCH OR DEPARTMENT CHIEF LIBRARIAN [facility] SOURCE (QST) NASOPHARYNGEAL SWAB 04/10/2020 7:34 AM BRANCH OR DEPARTMENT CHIEF LIBRARIAN [facility] NASOPHARYNGEAL SWAB / Unknown 04/10/2020 7:40 AM BRANCH OR DEPARTMENT CHIEF LIBRARIAN us Beckie Krishnamurthy MD MICROBIOLOGY - GENERAL ORDERABLE S Final Result [facility] [address] [place] [address], [facility] [address] documented in this encounter Visit Diagnoses Diagnosis Screening for condition- Primary Screening for unspecified condition documented in this encounter Additional Health Concerns Infection Onset Date Last Indicated Resolved Time COVID-19 Rule Out 04/10/2020 04/10/2020 04/11/2020 9:56 PM BRANCH OR DEPARTMENT CHIEF LIBRARIAN documented as of this encounter Care Teams Coin Box Inspector Relationship Specialty Start Date End Date Jesús Davenport MD [address] [place] [address] PCP - General FAMILY PRACTICE 03/01/19 documented as of this encounter
--- OUTSIDE RECORDS SUMMARY | 2024-05-30 02:29 | XMS_ITS | Encounter Summary ---
Author Organization [facility] Address [address] [place] [address]. 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 Yes 06/26/2020 10:58 AM RESPIRATORY SCIENTIST documented as of this encounter Plan of Treatment Not on file documented as of this encounter Visit Diagnoses Not on filedocumented in this encounter Care Teams Pearl Peller Relationship Specialty Start Date End Date Jesús Davenport MD [address] [place] [address] PCP - General FAMILY PRACTICE 03/01/19 documented as of this encounter
--- OUTSIDE RECORDS SUMMARY | 2024-05-30 02:29 | XMS_ITS | Encounter Summary ---
Author Organization [facility] Address [address] [place] [address]. [place], [place] [address] [place] [address] Care Team Providers Care Air Shovel Operator Name Role Phone Jesús Davenport MD Primary Care Provider [phone] Reason for Referral * Imaging (Routine) - Closed Specialty Diagnoses / Procedures Referred By Stevie love Referred To Contact RADIOLOGY Diagnoses Encounter for other screening for malignant neoplasm of breast Procedures MG SCREENING W Molly Willams MD [address] [place] [address] Phone: tel: fax: Referral ID Status Reason Start Date Expiration Date Visits Re quested Visits Authorized [id number] Closed 07/28/2023 09/25/2024 1 1 Reason for Visit * Imaging (Routine) - Closed Specialty Diagnoses / Procedures Referred By Stevie love Referred To Contact RADIOLOGY Diagnoses Encounter for other screening for malignant neoplasm of breast Procedures MG SCREENING W Molly Willams MD [address] [place] [address] Phone: tel: fax: Referral ID Status Reason Start Date Expiration Date Visits Re quested Visits Authorized [id number] Closed 07/28/2023 09/25/2024 1 1 Encounter Details Date Type Department Care Team (Latest Contact Info) Description 08/21/2023 2:17 PM CDT - 08/21/2023 11:59 PM CDT Hospital Encounter [facility] [address] [place] [address] Molly Hensley MD [address] [place] [address] Discharge Disposition: Home or Self Care (Routine Discharge) Social History Tobacco Use Types Packs/Day Years Used Date Smoking Tobacco: Never Assessed Comments No Sex and Gender Information Value Date Recorded Sex Assigned at Not on file Legal Sex Female 9:42 PM 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 Gender Identity Not on file Sexual Orientation Not on file documented as of this encounter Plan of Treatment Not on file documented as of this encounter Procedures Procedure Name Priority Date/Time Associated Diagnosis Comments MG SCREENING W LORIE ELO DIGI Routine 08/21/2023 2:30 PM CDT Encounter for other screening for malignant neoplasm of breast documented in this encounter Results * MG SCREENING W LORIE ELO DIGI (08/21/2023 2:30 PM CDT) Anatomical Region Laterality Modality Breast Bilateral Mammography 08/24/2023 11:4 8 AM CDT Narrative 08/24/2023 11:49 AM CDT Examination: Screening bilateral mammogram Clinical history: Screening Comparison: Priors including June 2022, June 2021, May 2020. Technique: Digital screening mammography of both breasts was performed. ?? Breast tomosynthesis acquisitions were obtained and reviewed. ??This study was read with the assistance of a computer-aided detection system. Tissue density: The breast tissue is heterogeneously dense, which may obscure small masses. Findings: On the right there is no suspicious masses, malignant appearing calcifications, skin thickening or other abnormalities are present. Within the lateral aspect of the left breast on the cc view there is an asymmetry that is present. Compression view and possible ultrasound recommended for further evaluation. This could relate to overlapping glandular tissue. IMPRESSION: Asymmetry left breast just slightly lateral to the nipple on the cc view superior to the nipple on the MLO view. Compression view and possible ultrasound. Recommendation: 1. Additional Imaging, Left Assessment: ACR BI-RADS 0 - INCOMPLETE: NEEDS ADDITIONAL IMAGING EVALUATION Ordered By: MOLLY HENSLEY Interpreted By: Phillip Trujillo MD, 08/24/2023 11:48 AM us Molly Hensley MD MAMMO Final Result documented in this encounter Visit Diagnoses Diagnosis Encounter for other screening for malignant neoplasm of breast documented in this encounter Care Teams Air Shovel Operator Relationship Specialty Start Date End Date Jesús Davenport MD [address] [place] [address] PCP - General FAMILY PRACTICE 03/01/19 documented as of this encounter
--- OUTSIDE RECORDS SUMMARY | 2024-05-30 02:29 | XMS_ITS | Encounter Summary ---
Author Organization [facility] Address [address] [place] [address]. [place], [place] [id number] [place] [id number] Care Team Providers Care Boarding Room Fixer Name Role Phone Jesús Davenport MD Primary Care Provider [phone] Reason for Referral * Imaging (Emergency) - Closed Specialty Diagnoses / Procedures Referred By Contac t Referred To Contact RADIOLOGY Procedures CT ABD+PEL W IV CON ONLY Hilario Cadena MD Phone: tel: fax: Referral ID Status Reason Start Date Expiration Date Visits Re quested Visits Authorized [id number] Closed 03/10/2019 04/10/2020 1 1 Reason for Visit * Reason Comments Abdominal Pain Encounter Details Date Type Department Care Team (Late st Contact Info) Description 03/10/2019 6:30 AM CDT - 03/10/2019 8:55 AM CDT Emergency [facility] [address] [place] [address] Hilario Cadena MD [address] [place] [phone] Abdominal Pain Discharge Disposition: Home or Self Care (Routine Discharge) Social History Tobacco Use Types Packs/Day Years Used Date Smoking Tobacco: Never Assessed Comments No Sex and Gender Information Value Date Recorded Sex Assigned at Not on file 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 * Acute Abdomen (Belly Pain) (Burundian) * Acute Abdomen (Belly Pain) Discharge Instructions, Adult (Burundian) documented in this encounter Medications at Time of Discharge ketorolac 10 MG tablet Take 1 tablet (10 mg total) by mouth 4 (four) times daily as needed for Pain. 20 tablet 03/10/2019 03/15/2019 documented as of this encounter ED Notes * Betty Zamudio RN - 03/10/2019 8:30 AM CDT Iv site in [facility] d/c'ed per julian apodaca (line inserted per previous shift). * Betty Zamudio RN - 03/10/2019 8:10 AM CDT Returns from bathroom without incident. * Betty Zamudio RN - 03/10/2019 8:04 AM CDT Ambulatory to bathroom. * Aleja Blount CNA - 03/10/2019 7:38 AM CDT ED back from CT scan * Betty Zamudio RN - 03/10/2019 7:37 AM CDT Returns from ct per stretcher. * Aleja Blount CNA - 03/10/2019 7:17 AM CDT ED out to CT scan. * Betty Zamudio RN - 03/10/2019 7:[address] per stretcher * Betty Zamudio RN - 03/10/2019 7:05 AM CDT Consent for iv contrast signed per pt. * Hilario Cadena MD - 03/10/2019 6:37 AM CDT eMERGENCY dEPARTMENT eNCOUnter CHIEF COMPLAINT Chief Complaint Patient presents with ??? Abdominal Pain HPI HPI Freida La is a 44-year-old female who presents to the ER with a complaint of having severe lower abdominal pain since last evening. Patient states she never had pain like this before. She is a previous C-sections but no other abdominal surgeries. She does get frequent bladder infections but they do not present this way. She has some mild pain in the lower back but not worse on the right of the left. No fevers chills bowel or bladder symptoms or other complaints. Ibuprofen at home without any relief. ALLERGIES No Known Allergies CURRENT MEDICATIONS No current outpatient medications on file. PAST MEDICAL HISTORY History reviewed. No pertinent past medical history. SURGICAL HISTORY Past Surgical History: Procedure Laterality Date ??? HC SOCIAL HISTORY Social History Socioeconomic History ??? Marital status: Spouse name: Not on file ??? Number of children: Not on file ??? Years of education: Not on file ??? Highest education level: Not on file Occupational History ??? Not on file Social Needs ??? Financial resource strain: Not on file ??? Food insecurity: Worry: Not on file Inability: Not on file ??? Transportation needs: Medical: Not on file Non-medical: Not on file Tobacco Use ??? Smoking status: Not on file Substance and Sexual Activity ??? Alcohol use: Not on file ??? Drug use: Not on file ??? Sexual activity: Not on file Lifestyle ??? Physical activity: Days per week: Not on file Minutes per session: Not on file ??? Stress: Not on file Relationships ??? Social connections: Talks on phone: Not on file Gets together: Not on file Attends gnosticist service: Not on file Active member of club or organization: Not on file Attends meetings of clubs or organizations: Not on file Relationship status: Not on file ??? Intimate partner violence: Fear of current or ex partner: Not on file Emotionally abused: Not on file Physically abused: Not on file Forced sexual activity: Not on file Other Topics Concern ??? Not on file Social History Narrative ??? Not on file FAMILY HISTORY No family history on file. REVIEW OF SYSTEMS Review of Systems All other ROS negative unless noted above in HPI. PHYSICAL EXAM Physical Exam Filed Vitals: 03/10/19 0626 BP: 134/76 Pulse: 90 Resp: 18 Temp: 97.2 ??F (36.2 ??C) TempSrc: Temporal SpO2: 100% Weight: 63.5 kg (140 lb) Height: 5' (1.524 m) The patient is a well developed and well nourished adult female in moderate painful distress, alertand oriented. HEENT: PERRL, EOMI Nose without drainage Throat without lesions, mucous membranes moist NECK: Supple without adenopathy or rigidity CHEST: Lungs clear and equal to auscultation Heart regular rate and rhythm without murmur ABD: Soft, NABS, suprapubic tenderness without rebound guarding or mass no CVA tenderness EXT: No clubbing, cyanosis, edema NEURO: CN II-XII intact, no focal weakness SKIN: No rash or significant lesions EKG RADIOLOGY CT ABD+PEL W IV CON ONLY (Results Pending) LABS No results found for this visit on 03/10/19. ED MEDICATIONS Medications sodium chloride 0.9% bolus infusion SOLN 1,000 mL (not administered) morphine injection 4 mg (not administered) ondansetron (ZOFRAN) injection 4 mg (not administered) PROCEDURES Procedures CONSULTS: ED COURSE & MEDICAL DECISION MAKING MDM Patient was seen in the last half hour of my shift. Is not clear what is causing her pain but she appears quite uncomfortable so I have ordered a CT scan as well as blood and urine tests and will hydrate her and give pain medication. The case will be endorsed the next emergency physician. Please see the chart for final results and disposition. FINAL IMPRESSION SNOMED CT(R) 1. Abdominal pain ABDOMINAL PAIN No follow-up provider specified. New Prescriptions No medications on file Hilario Cadena MD 03/10/19 0640 * Mary Hanks RN - 03/10/2019 6:24 AM CDT Patient has had 2 bladder infections recently. Having lower abdominal pain, loose stool and pain into the lower back. Patient took 4 ibuprofen previous to arrival. Was on antibiotics for bladder infections. documented in this encounter Plan of Treatment Not on file documented as of this encounter Procedures Procedure Name Priority Date/Time Associated Diagnosis Comments URINALYSIS WI REFLEX TO CULTURE STAT 03/10/2019 8:10 AM CDT TEST URINE STAT 03/10/2019 8:[address] ABD+PEL W CON STAT 03/10/2019 7:40 AM CDT COMPREHENSIVE METABOLIC PANEL STAT 03/10/2019 6:32 AM CDT CBC W/DIFF AUTOMATED STAT 03/10/2019 6:32 AM CDT LIPASE STAT 03/10/2019 6:32 AM CDT documented in this encounter Results * (ABNORMAL) URINALYSIS WI REFLEX TO CULTURE (03/10/2019 8:10 AM CDT) COLOR (U) YELLOW 03/10/2019 8:24 AM CDT [facility] TRANSPARENCY CLEAR 03/10/2019 8:24 AM CDT [facility] SPECIFIC GRAVITY (U) 1.015 1.000 - 1.025 03/10/2019 8:24 AM CDT [facility] U PH 7.5 5.0 - 8.0 03/10/2019 8:24 AM CDT [facility] LEUKOCYTES (U) NEGATIVE NEGATIVE 03/10/2019 8:24 AM CDT [facility] NITRITES NEGATIVE NEGATIVE 03/10/2019 8:24 AM CDT [facility] PROTEIN (U) NEGATIVE NEGATIVE 03/10/2019 8:24 AM CDT [facility] URINE GLUCOSE NEGATIVE NEGATIVE 03/10/2019 8:24 AM CDT [facility] KETONES MG/DL (U) NEGATIVE NEGATIVE 03/10/2019 8:24 AM CDT [facility] UROBILINOGEN 0.2 <1.0 EU/DL 03/10/2019 8:24 AM CDT [facility] BILIRUBIN (U) NEGATIVE NEGATIVE 03/10/2019 8:24 AM CDT [facility] BLOOD (U) 2+(A) NEGATIVE 03/10/2019 8:24 AM CDT [facility] WBC/HPF 0-5 0 - 5 /HPF 03/10/2019 8:24 AM CDT [facility] RBC/HPF 5-10(A) 0 - 5 /HPF 03/10/2019 8:24 AM CDT [facility] CULTURE & SENSITIVITY INDICATED? NOT INDICATED 03/10/2019 8:24 AM CDT [facility] URINE SPECIMEN FROM URETHRA / Unknown 03/10/2019 8:10 AM CDT us Hilario Cadena MD URINE ORDERABLES Final Result [facility] [address] [place] [address], [place] [phone] * TEST URINE (03/10/2019 8:10 AM CDT) PREG TEST NEGATIVE 03/10/2019 8:21 AM CDT [facility] SPECIFIC GRAVITY (U) 1.015 03/10/2019 8:21 AM CDT [facility] URINE SPECIMEN FROM URETHRA / Unknown 03/10/2019 8:10 AM CDT us Hilario Cadena MD URINE ORDERABLES Final Result [facility] [address] [place] [id number], * CT ABD+PEL W IV CON ONLY (03/10/2019 7:40 AM CDT) Anatomical Region Laterality Modality Abdomen Computed Tomogra phy 03/10/2019 7:53 AM CDT Impressions 03/10/2019 7:59 AM CDT IMPRESSION: 1. Prominent low density within the endometrial cavity, possibly related to menstrual blood products given clinical history. 2. Right ovarian follicles/cysts measuring up to 2.8 cm. 3. No free fluid or free air. No drainable collections Interpreted By: Todd Howard MD, 03/10/2019 7:53 AM Narrative 03/10/2019 7:59 AM CDT EXAMINATION: CT Abdomen and Pelvis with contrast CLINICAL HISTORY: Lower abdominal pain with nausea. Patient has been experiencing clotting with this menstrual period. COMPARISON: None TECHNIQUE: Computed tomography of the abdomen and pelvis was obtained after administration of intravenous contrast, 97 mL of Isovue-370, without immediate complication according to routine protocol. A dose lowering technique was used for this procedure, which may include, but is not limited to, dose reduction technique, automated exposure control, the use of iterative reconstruction, and ALARA (As Low As Reasonably Achievable) / Image Gently techniques. FINDINGS: Images of the lower chest reveal no acute findings. Tiny hypodensity in the right lobe of the liver near the dome, possibly cyst or hemangioma. Otherwise the remainder of the liver, gallbladder, spleen, pancreas, and adrenal glands appear unremarkable. Tiny hypodensity in the right renal lower pole, possibly tiny cyst. No hydronephrosis. Enhanced retroperitoneal vascular structures unremarkable. No bulky mesenteric or retroperitoneal lymphadenopathy. Stomach and small bowel loops nondilated. Cecum is situated in the mid abdomen. Normal appendix. Mild solid feces in the cecum and right colon. Transverse and descending colonic segments are relatively decompressed. No free fluid or free air in the abdomen. Prominent low density seen within the endometrial cavity, possibly related to menstrual blood products given clinical history. Right ovarian follicles/cysts measuring up to 2.8 cm. No pelvic ascites. Sigmoid colon and rectum unremarkable. Bladder unremarkable. Osseous structures reveal no acute findings. Procedure Note Todd Howard MD - 03/10/2019 EXAMINATION: CT Abdomen and Pelvis with contrast CLINICAL HISTORY: Lower abdominal pain with nausea. Patient has been experiencing clotting with this menstrual period. COMPARISON: None TECHNIQUE: Computed tomography of the abdomen and pelvis was obtainedafter administration of intravenous contrast, 97 mL of Isovue-370, without immediate complication according to routine protocol. A dose lowering technique was used for this procedure, which mayinclude, but is not limited to, dose reduction technique, automated exposure control, the use of iterative reconstruction, and ALARA (As Low As Reasonably Achievable) / Image Gently techniques. FINDINGS: Images of the lower chest reveal no acute findings. Tiny hypodensity in the right lobe of the liver near the dome, possibly cyst or hemangioma. Otherwise the remainder of the liver, gallbladder, spleen, pancreas, and adrenal glands appear unremarkable. Tinyhypodensity in the right renal lower pole, possibly tiny cyst. No hydronephrosis. Enhanced retroperitoneal vascular structures unremarkable. No bulky mesenteric or retroperitoneal lymphadenopathy. Stomach and small bowel loops nondilated. Cecum is situated in the mid abdomen. Normal appendix. Mild solid feces in the cecum and right colon. Transverse and descending colonic segments are relatively decompressed.No free fluid or free air in the abdomen. Prominent low density seen within the endometrial cavity, possiblyrelated to menstrual blood products given clinical history. Right ovarian follicles/cysts measuring up to 2.8 cm. No pelvic ascites. Sigmoid colon and rectum unremarkable. Bladder unremarkable. Osseous structures reveal no acute findings. IMPRESSION: 1. Prominent low density within the endometrial cavity, possibly relatedto menstrual blood products given clinical history. 2. Right ovarian follicles/cysts measuring up to 2.8 cm. 3. No free fluid or free air. No drainable collections Interpreted By: Todd Howard MD, 03/10/2019 7:53 AM Hilario Cadena MD CT Final Result * LIPASE (03/10/2019 6:32 AM CDT) LIPASE 141 73 - 393 UNITS/L 03/10/2019 6:54 AM CDT [facility] 03/10/2019 6:32 AM CDT Hilario Cadena MD LABORATORY Final Result [facility] [place] [address], * (ABNORMAL) COMPREHENSIVE METABOLIC PANEL (03/10/2019 6:32 AM CDT) SODIUM S/P/B 138 136 - 145 MMOL/L 03/10/2019 6:54 AM CDT [facility] POTASSIUM S/P/B 3.3(L) 3.5 - 5.1 MMOL/L 03/10/2019 6:54 AM CDT [facility] CHLORIDE S/P/B 103 98 - 107 MMOL/L 03/10/2019 6:54 AM CDT [facility] CO2 25.2 21.0 - 32.0 MMOL/L 03/10/2019 6:54 AM CDT [facility] GLUCOSE 116(H) 70 - 99 MG/DL 03/10/2019 6:54 AM CDT [facility] Comment: FASTING GLUCOSE 100 TO 125 MG/DL IS CONSISTENT WITH IMPAIRED FASTING GLUCOSE. FASTING GLUCOSE >125 MG/DL IS CONSISTENT WITH DIABETES. RANDOM GLUCOSE >200 MG/DL WITH HYPERGLYCEMIC SYMPTOMS IS CONSISTENT WITH DIABETES. PER ADA GUIDELINES BUN 14 6 - 24 MG/DL 03/10/2019 6:54 AM [facility] CREATININE S/P/B 0.90 0.55 - 1.02 MG/DL 03/10/2019 6:54 AM [facility] CALCIUM S/P/B 8.8 8.4 - 10.5 MG/DL 03/10/2019 6:54 AM [facility] BILIRUBIN TOTAL S/P/B 0.4 0.2 - 1.0 MG/DL 03/10/2019 6:54 AM [facility] ALKALINE PHOSPHATASE S/P/B 63 37 - 98 U/L 03/10/2019 6:54 AM [facility] AST 11(L) 15 - 37 U/L 03/10/2019 6:54 AM [facility] ALT 15 14 - 59 U/L 03/10/2019 6:54 AM [facility] TOTAL PROTEIN S/P/B 7.1 6.4 - 8.2 G/DL 03/10/2019 6:54 AM [facility] ALBUMIN S/P/B 3.8 3.4 - 5.0 G/DL 03/10/2019 6:54 AM [facility] ANION GAP 9.8 5.0 - 15.0 MMOL/L 03/10/2019 6:54 AM [facility] OSMOLALITY (CALC) 287 MOSM/KG 03/10/2019 6:54 AM [facility] Comment:REFERENCE RANGE NOT ESTABLISHED EGFR NON-AFR. AMER. 79(L) >89 ML/MIN/1 .73 M2 03/10/2019 6:54 AM [facility] EGFR AFR. AMER. >90 >89 ML/MIN/1 .73 M2 03/10/2019 6:54 AM [facility] GFR NOTES THE ESTIMATED GFR IS CALCULATED USING THE 2009 CKD-EPI EQUATION. THE FOLLOWING CATEGORIES FOR GRADING RENAL FUNCTION ARE RECOMMENDED BY THE INTERNATIONAL SOCIETY OF NEPHROLOGY (KDIGO 2012 CLINICAL PRACTICE GUIDELINE). 03/10/2019 6:54 AM [facility] Comment: G1,NORMAL OR HIGH: >89 ml/min/1.73 m2 G2,MILDLY DECREASED: 60-89 ml/min/1.73 m2 G3A,MILDLY TO MODERATELY DECREASED: 45-59 ml/min/1.73 m2 G3B,MODERATELY TO SEVERELY DECREASED: 30-44 ml/min/1.73 m2 G4,SEVERELY DECREASED: 15-29 ml/min/1.73 m2 G5,KIDNEY FAILURE: <15 ml/min/1.73 m2 03/10/2019 6:32 AM CDT us Hilario Cadena MD LABORATORY Final Result [facility] [address] [place] [address], * (ABNORMAL) CBC W/DIFF AUTOMATED (03/10/2019 6:32 AM CDT) WBC 7.9 4.5 - 10.8 x10'3/uL 03/10/2019 6:43 AM CDT [facility] RBC 4.75 4.10 - 5.40 x10'6/uL 03/10/2019 6:43 AM CDT [facility] HGB 12.4 12.0 - 16.0 G/DL 03/10/2019 6:43 AM CDT [facility] HCT 39.3 36.0 - 47.0 % 03/10/2019 6:43 AM CDT [facility] MCV 82.7 78.0 - 100.0 FL 03/10/2019 6:43 AM CDT [facility] MCH 26.1(L) 27.0 - 31.0 PG 03/10/2019 6:43 AM CDT [facility] MCHC 31.6(L) 33.0 - 36.0 G/DL 03/10/2019 6:43 AM CDT [facility] RDW 14.1 11.5 - 14.5 % 03/10/2019 6:43 AM CDT [facility] PLT 249 150 - 350 x10'3/uL 03/10/2019 6:43 AM CDT [facility] MPV 10.4 7.4 - 10.4 FL 03/10/2019 6:43 AM CDT [facility] DIFFERENTIAL COMMENT NORMAL REFERENCE RANGE NOT ESTABLISHED FOR THE PROPORTIONAL LEUKOCYTE DIFFERENTIAL. 03/10/2019 6:43 AM CDT [facility] SEG NEUTROPHILS 73.9 % 9 6:43 AM CDT [facility] LYMPHOCYTES 15.2 % 03/10/2019 6:43 AM CDT [facility] MONOCYTES 8.6 % 03/10/2019 6:43 AM CDT [facility] EOSINOPHILS 1.1 % 03/10/2019 6:43 AM CDT [facility] BASOPHILS 0.8 % 03/10/2019 6:43 AM CDT [facility] IMMATURE GRANS % 0.4 % 03/10/20 19 6:43 AM CDT [facility] NRBC 0.0 % 03/10/2019 6:43 AM CDT [facility] ABS. NEUTROPHILS 5.85 1.60 - 8.30 x10'3/uL 03/10/2019 6:43 AM CDT [facility] ABS. LYMPHOCYTES 1.20 0.80 - 4.70 x10'3/uL 03/10/2019 6:43 AM CDT [facility] ABS. MONOCYTES 0.68 0.00 - 1.50 x10'3/uL 03/10/2019 6:43 AM T [facility] ABS. EOSINOPHILS 0.09 0.00 - 0.40 x10'3/uL 03/10/2019 6:43 AM CDT [facility] ABS. BASOPHILS 0.06 0.00 - 0.20 x10'3/uL 03/10/2019 6:43 AM CDT [facility] ABS. IMMATURE GRANULOCYTES 0.03 0.00 - 0.03 x10'3/uL 03/10/2019 6:43 AM T [facility] ABS. NUCLEATED RBC'S 0.00 0.00 x10'3/uL 03/10/2019 6:43 AM T [facility] 03/10/2019 6:32 AM CDT Hilario Cadena MD LABORATORY Final Result [facility] [address] [place] [address], documented in this encounter Visit Diagnoses Diagnosis Abdominal pain- Primary Abdominal pain, unspecified site DUB (dysfunctional uterine bleeding) Other disorder of menstruation and other abnormal bleeding from female genital tract documented in this encounter Administered Medications Inactive Administered Medications - up to 3 most recent administrations Medication Order MAR Action Action Date Dose Rate Site iopamidol (ISOVUE-370) 76 % injection 97 mL 97 mL, Intravenous, IMG once as needed, Contrast, 1 dose, Starting on Porsha 03/10/19 at 0743, Until Porsha 03/10/19 at 0743 Given 03/10/2019 7:43 AM CDT 97 mLs morphine injection 4 mg 4 mg, Intravenous, Once, 1 dose, On Porsha 03/10/19 at 0645 Given 03/10/2019 6:49 AM CDT 4 mg ondansetron (ZOFRAN) injection 4 mg 4 mg, Intravenous, Once, 1 dose, On Porsha 03/10/19 at 0645, IV push over 2-5 minutes. Given 03/10/2019 6:49 AM CDT 4 mg sodium chloride 0.9% bolus infusion SOLN 1,000 mL 1,000 mL, Intravenous, Administer over 15 Minutes, Once, 1 dose, On Porsha 03/10/19 at 0645 New Bag 03/10/2019 6:48 AM CDT 1,000 mLs documented in this encounter Active and Recently Administered Medications Times are shown in CDT. Scheduled Medication Order 03/08/2019 03/09/2019 03/10/2019 morphine injection 4 mg (COMPLETED) 4 mg, Intravenous, Once, 1 dose, On Porsha 03/10/19 at 0645 0649 (Given - Provid er: Sarika Solano RN) ondansetron (ZOFRAN) injection 4 mg (COMPLETED) 4 mg, Intravenous, Once, 1 dose, On Porsha 03/10/19 at 0645, IV push over 2-5 minutes. 0649 (Given - Provid er: Sarika Solano RN) sodium chloride 0.9% bolus infusion SOLN 1,000 mL (COMPLETED) 1,000 mL, Intravenous, Administer over 15 Minutes, Once, 1 dose, On Porsha 03/10/19 at 0645 0648 (New Bag - Prov ider: Sarika Solano, AMELIA)[id number] (Infusion Stop Time - Provider: Betty Zamudio, AMELIA) PRN Medication Order 03/08/2019 03/09/2019 03/10/2019 iopamidol (ISOVUE-370) 76 % injection 97 mL (COMPLETED) 97 mL, Intravenous, IMG once as needed, Contrast, 1 dose, Starting on Porsha 03/10/19 at 0743, Until Porsha 03/10/19 at 0743 0743 (Given - Provid er: Mariann Epps, RTR) documented in this encounter Care Teams Boarding Room Fixer Relationship Specialty Start Date End Date Jesús Davenport MD [address] [place] [address] PCP - General FAMILY PRACTICE 03/01/19 documented as of this encounter
--- OUTSIDE RECORDS SUMMARY | 2024-05-30 02:29 | XMS_ITS | Encounter Summary ---
Author Organization [facility] Address [address] [place] [address]. 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 No / Unsure 04/10/2020 7:28 AM STROKE PROGRAM COORDINATOR documented as of this encounter Plan of Treatment Not on file documented as of this encounter Visit Diagnoses Not on filedocumented in this encounter Additional Health Concerns Infection Onset Date Last Indicated Resolved Time COVID-19 Rule Out 04/10/2020 04/10/2020 04/11/2020 9:56 PM STROKE PROGRAM COORDINATOR documented as of this encounter Care Teams Door Liner Relationship Specialty Start Date End Date Jesús Davenport MD [address] [place] [address] PCP - General FAMILY PRACTICE 03/01/19 documented as of this encounter
--- OUTSIDE RECORDS SUMMARY | 2024-05-30 02:29 | XMS_ITS | Encounter Summary ---
Author Organization [facility] Address [address] [place] [address]. [place] [id number] Care Team Providers Care Software Project Engineer Name Role Phone Jesús Davenport MD Primary Care Provider [phone] Encounter Details Date Type Department Care Team (Latest Contact Info) Description 05/18/2020 Travel Social History Tobacco Use Types Packs/Day [...] COVID-19? No / Unsure 05/18/2020 12:12 PM LOOPER FIXER documented as of this encounter Plan of Treatment Not on file documented as of this encounter Visit Diagnoses Not on filedocumented in this encounter Care Teams Software Project Engineer Relationship Specialty Start Date End Date Jesús Davenport MD [address] [place] [address] PCP - General FAMILY PRACTICE 03/01/19 documented as of this encounter
--- OUTSIDE RECORDS SUMMARY | 2024-05-30 02:29 | XMS_ITS | Encounter Summary ---
Author Organization [facility] Address [address] [place] [address]. [place], [place] [address] [place] [address] Care Team Providers Care Producer Name Role Phone Unavailable Primary Care Provider Unavailabl e Encounter Details Date Type Department Care Team (Late st Contact Info) Description 09/13/2016 Abstract [facility] [address] [facility] [place] [address] Jesús Davenport MD [address] [place] [id number] Social History Tobacco Use Types Packs/Day Years Used Date Smoking Tobacco: Never Assessed Comments Unknown Sex and Gender Information Value Date Recorded Sex Assigned at Not on file Legal Sex Female 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
--- OUTSIDE RECORDS SUMMARY | 2024-05-30 02:29 | XMS_ITS | Encounter Summary ---
Author Organization [facility] Address [address] [place] [address]. 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
--- OUTSIDE RECORDS SUMMARY | 2024-05-30 02:29 | XMS_ITS | Encounter Summary ---
Author Organization [facility] Address [address] [place] [address]. [place], [place] [address] [place] [address] Care Team Providers Care Wire Weaver Name Role Phone Unavailable Primary Care Provider Unavailabl e Encounter Details Date Type Department Care Team (Late st Contact Info) Description 04/09/2017 Abstract [facility] [address] [facility] [place] [address] Jesús Davenport MD [address] [place] [id number] Social History Tobacco Use Types Packs/Day Years Used Date Smoking Tobacco: Never Assessed Comments Unknown Sex and Gender Information Value Date Recorded Sex Assigned at Not on file Legal Sex Female 9:42 PM REBRANDER Gender Identity Not on file Sexual Orientation Not on file documented as of this encounter Plan of Treatment Not on file documented as of this encounter Procedures Procedure Name Priority Date/Time Associated Diagnosis Comments VITAMIN D, 25 OH Routine 04/09/2017 12:2 9 PM REBRANDER documented in this encounter Results * (ABNORMAL) VITAMIN D, 25 OH (04/09/2017 12:29 PM REBRANDER) VITAMIN D 25 HYDROXY S/P/B 23.3(L) 24.6 - 80.0 NG/ML 04/10/2017 2:36 PM REBRANDER [facility] Comment:2.5TH PERCENTILE: <1 3.0MEDIAN: 24.697.5TH PERCENTILE: 47.8 SERUM OR PLASMA SPECIMEN / Unknown 04/09/2017 12:29 PM REBRANDER 04/09/2017 12:30 PM REBRANDER us Generic Conversion Md [facility] Final R esult Performing Organization Address City/State/[facility] Co de Phone Number [facility] [address] [place] [address], [id number] documented in this encounter Visit Diagnoses Diagnosis Vitamin D deficiency Unspecified vitamin D deficiency documented in this encounter
--- OUTSIDE RECORDS SUMMARY | 2024-05-30 02:29 | XMS_ITS | Encounter Summary ---
Author Organization [facility] Address [address] [place] [address]. [place], [place] [address] [place] [address] Care Team Providers Care Boat Cleaning Supervisor Name Role Phone Unavailable Primary Care Provider Unavailabl e Encounter Details Date Type Department Care Team (Latest Contact Info) Description 01/19/2017 Abstract [facility] Social History Tobacco Use Types Packs/Day Years Used Date Smoking Tobacco: Never Assessed Comments Unknown Sex and Gender Information Value Date Recorded Sex Assigned at Not on file Legal Sex Female 9:42 PM ANALYTICAL LAB ANALYST Gender Identity Not on file Sexual Orientation Not on file documented as of this encounter Plan of Treatment Not on file documented as of this encounter Visit Diagnoses Not on filedocumented in this encounter
--- OUTSIDE RECORDS SUMMARY | 2024-05-30 02:29 | XMS_ITS | Encounter Summary ---
Author Organization [facility] Address [address] [place] [address]. [place], [place] [address] [place] [address] Care Team Providers Care Inside Tester Name Role Phone Unavailable Primary Care Provider Unavailabl e Encounter Details Date Type Department Care Team (Late st Contact Info) Description 03/27/2004 Abstract [facility] [address] [place] [address] Jasbir Aguilar MD [address] [place] [id number] Social History Tobacco Use Types Packs/Day Years Used Date Smoking Tobacco: Never Assessed Comments Unknown Sex and Gender Information Value Date Recorded Sex Assigned at Not on file Legal Sex Female 9:42 PM PLAYER DEVELOPMENT MANAGER Gender Identity Not on file Sexual Orientation Not on file documented as of this encounter Plan of Treatment Not on file documented as of this encounter Visit Diagnoses Not on filedocumented in this encounter
--- OUTSIDE RECORDS SUMMARY | 2024-05-30 02:29 | XMS_ITS | Encounter Summary ---
Author Organization [facility] Address [address] [place] [address]. [place], [place] [address] [place] [address] Care Team Providers Care Central Office Operator Name Role Phone Jesús Davenport MD Primary Care Provider [phone] Reason for Visit * Imaging (Routine) - Closed Specialty Diagnoses / Procedures Referred By Contac t Referred To Contact RADIOLOGY Diagnoses Visit for screening mammogram Procedures MG SCREENING W LORIE ELO DIGI Beckie Krishnamurthy MD [address] [place] [address] Phone: tel: fax: Referral ID Status Reason Start Date Expiration Date Visits Re quested Visits Authorized [id number] Closed 04/02/2020 05/02/2021 1 1 Encounter Details Date Type Department Care Team (Latest Contact Info) Description 05/18/2020 12:13 PM PARAPROFESSIONAL AIDE TEACHER - 05/18/2020 11:59 PM PARAPROFESSIONAL AIDE TEACHER Hospital Encounter [facility] [address] [facility] [place] [address] Beckie Krishnamurthy MD [address] [place] [address] Discharge Disposition: Home or Self Care (Routine Discharge) Social History Tobacco Use Types Packs/Day Years Used Date Smoking Tobacco: Never Assessed Comments No Sex and Gender Information Value Date Recorded Sex Assigned at Not on file Legal Sex Female 9:42 PM PARAPROFESSIONAL AIDE TEACHER Gender Identity Not on file Sexual Orientation Not on file COVID-19 Exposure Response Date Recorded In the last month, have you been in contact with someone who was confirmed or suspected to have Coronavirus / COVID-19? No / Unsure 05/18/2020 12:12 PM PARAPROFESSIONAL AIDE TEACHER documented as of this encounter Plan of Treatment Not on file documented as of this encounter Procedures Procedure Name Priority Date/Time Associated Diagnosis Comments MG SCREENING W LORIE ELO DIGI Routine 05/18/2020 12:44 PM PARAPROFESSIONAL AIDE TEACHER Visit for screening mammogram documented in this encounter Results * MG SCREENING W LORIE ELO DIGI (05/18/2020 12:44 PM PARAPROFESSIONAL AIDE TEACHER) Anatomical Region Laterality Modality Breast Bilateral Mammography 05/21/2020 10:2 1 AM PARAPROFESSIONAL AIDE TEACHER Impressions 05/21/2020 10:22 AM PARAPROFESSIONAL AIDE TEACHER IMPRESSION: No suspicious change since the previous exams. Recommendation: 1: Routine screening mammogram ??Bilateral ?? in 1 Year Assessment: ACR BI-RADS Category 2 - Benign. Interpreted By: Ralph Martinez MD, 05/21/2020 10:21 AM Narrative 05/21/2020 10:22 AM PARAPROFESSIONAL AIDE TEACHER Examination: Digital screening mammogram with CAD. Clinical history: Asymptomatic patient presents for routine screening. Comparison: 03/01/2019, 09/03/2017. Technique: Bilateral digital mammograms. The [...] on filedocumented in this encounter Care Teams Central Office Operator Relationship Specialty Start Date End Date Jesús Davenport MD [address] [place] [address] PCP - General FAMILY PRACTICE 03/01/19 documented as of this encounter
--- OUTSIDE RECORDS SUMMARY | 2024-05-30 02:29 | XMS_ITS | Encounter Summary ---
Author Organization [facility] Address [address] [place] [address]. [place], [place] [address] [place] [address] Care Team Providers Care Supervisor Bindery Name Role Phone Jesús Davenport MD Primary Care Provider [phone] Encounter Details Date Type Department Care Team (Late st Contact Info) Description 03/22/2019 Orders Only [facility] [address] [facility] [place] [address] Beckie Krishnamurthy MD [address] FLO[address] [place] [phone] Social History Tobacco Use Types Packs/Day Years Used Date Smoking Tobacco: Never Assessed Comments No Sex and Gender Information Value Date Recorded Sex Assigned at Not on file Legal Sex Female 9:42 PM FASTENER TECHNOLOGIST Gender Identity Not on file Sexual Orientation Not on file documented as of this encounter Plan of Treatment Not on file documented as of this encounter Results * (ABNORMAL) CBC W/DIFF AUTOMATED (03/22/2019 3:25 PM CDT) WBC 5.7 4.5 - 10.8 x10'3/uL 03/22/2019 3:32 PM CDT [facility] RBC 4.09(L) 4.10 - 5.40 x10'6/uL 03/22/2019 3:32 PM CDT [facility] HGB 10.8(L) 12.0 - 16.0 G/DL 03/22/2019 3:32 PM CDT [facility] HCT 34.3(L) 36.0 - 47.0 % 03/22/2019 3:32 PM CDT [facility] MCV 83.9 78.0 - 100.0 FL 03/22/2019 3:32 PM CDT [facility] MCH 26.4(L) 27.0 - 31.0 PG 03/22/2019 3:32 PM CDT [facility] MCHC 31.5(L) 33.0 - 36.0 G/DL 03/22/2019 3:32 PM CDT [facility] RDW 14.5 11.5 - 14.5 % 03/22/2019 3:32 PM CDT [facility] PLT 216 150 - 350 x10'3/uL 03/22/2019 3:32 PM CDT [facility] MPV 10.6(H) 7.4 - 10.4 FL 03/22/2019 3:32 PM CDT [facility] DIFFERENTIAL COMMENT NORMAL REFERENCE RANGE NOT ESTABLISHED FOR THE PROPORTIONAL LEUKOCYTE DIFFERENTIAL. 03/22/2019 3:32 PM CDT [facility] SEG NEUTROPHILS 62.9 % 9 3:32 PM CDT [facility] LYMPHOCYTES 22.7 % 03/22/2019 3:32 PM CDT [facility] MONOCYTES 11.4 % 03/22/2019 3:32 PM CDT [facility] EOSINOPHILS 1.9 % 03/22/2019 3:32 PM CDT [facility] BASOPHILS 0.9 % 03/22/2019 3:32 PM CDT [facility] IMMATURE GRANS % 0.2 % 03/22/20 19 3:32 PM CDT [facility] NRBC 0.0 % 03/22/2019 3:32 PM CDT [facility] ABS. NEUTROPHILS 3.60 1.60 - 8.30 x10'3/uL 03/22/2019 3:32 PM CDT [facility] ABS. LYMPHOCYTES 1.30 0.80 - 4.70 x10'3/uL 03/22/2019 3:32 PM CDT [facility] ABS. MONOCYTES 0.65 0.00 - 1.50 x10'3/uL 03/22/2019 3:32 PM CDT [facility] ABS. EOSINOPHILS 0.11 0.00 - 0.40 x10'3/uL 03/22/2019 3:32 PM CDT [facility] ABS. BASOPHILS 0.05 0.00 - 0.20 x10'3/uL 03/22/2019 3:32 PM CDT [facility] ABS. IMMATURE GRANULOCYTES 0.01 0.00 - 0.03 x10'3/uL 03/22/2019 3:32 PM CDT [facility] ABS. NUCLEATED RBC'S 0.00 0.00 x10'3/uL 03/22/2019 3:32 PM CDT [facility] 03/22/2019 3:25 PM CDT Beckie Krishnamurthy MD LABORATORY Final Result [facility] [place] [address], documented in this encounter Visit Diagnoses Diagnosis Abnormal uterine bleeding- Primary Unspecified disorder of menstruation and other abnormal bleeding from female genital tract documented in this encounter Care Teams Supervisor Bindery Relationship Specialty Start Date End Date Jesús Davenport MD [address] [place] [address] PCP - General FAMILY PRACTICE 03/01/19 documented as of this encounter
--- OUTSIDE RECORDS SUMMARY | 2024-05-30 02:29 | XMS_ITS | Encounter Summary ---
Author Organization [facility] Address [address] [place] [address]. [place] [address] Care Team Providers Care Planning Rn Name Role Phone Jesús Davenport MD Primary Care Provider [phone] Encounter Details Date Type Department Care Team (Latest Contact Info) Description 07/07/2020 Travel Social History Tobacco Use Types Packs/Day Years Used Date Smoking Tobacco: Never Assessed Comments No Sex and Gender Information Value Date Recorded Sex Assigned at Not on file Legal Sex Female 9:42 PM SENIOR MARKETING ANALYST Gender Identity Not on file Sexual Orientation Not on file COVID-19 Exposure Response Date Recorded In the last month, have you been in contact with someone who was confirmed or suspected to have Coronavirus / COVID-19? No / Unsure 07/07/2020 8:33 AM SENIOR MARKETING ANALYST documented as of this encounter Plan of Treatment Not on file documented as of this encounter Visit Diagnoses Not on filedocumented in this encounter Additional Health Concerns Infection Onset Date Last Indicated Resolved Time COVID-19 Rule Out 07/07/2020 07/07/2020 07/08/2020 4:56 PM SENIOR MARKETING ANALYST documented as of this encounter Care Teams Planning Rn Relationship Specialty Start Date End Date Jesús Davenport MD [address] [place] [address] PCP - General FAMILY PRACTICE 03/01/19 documented as of this encounter
--- OUTSIDE RECORDS SUMMARY | 2024-05-30 02:29 | XMS_ITS | Encounter Summary ---
Author Organization [facility] Address [address] [place] [address]. [place], [place] [address] [place] [address] Care Team Providers Care Balance Bridge Assembler Name Role Phone Jesús Davenport MD Primary Care Provider [phone] Reason for Referral * Imaging (Routine) - Closed Specialty Diagnoses / Procedures Referred By Stevie love Referred To Contact RADIOLOGY Diagnoses Abnormal mammogram Procedures US GD BREAST BX LT Molly Rose MD [address] [place] [address] Phone: tel: fax: Referral ID Status Reason Start Date Expiration Date Visits Re quested Visits Authorized [id number] Closed 09/16/2023 09/15/2024 1 1 Reason for Visit * Imaging (Routine) - Closed Specialty Diagnoses / Procedures Referred By Stevie love Referred To Contact RADIOLOGY Diagnoses Abnormal mammogram Procedures US GD BREAST BX LT Molly Rose MD [address] [place] [address] Phone: tel: fax: Referral ID Status Reason Start Date Expiration Date Visits Re quested Visits Authorized [id number] Closed 09/16/2023 09/15/2024 1 1 Encounter Details Date Type Department Care Team (Latest Contact Info) Description 09/21/2023 12:11 PM CDT - 09/21/2023 11:59 PM CDT Hospital Encounter [facility] [address] [place] [address] Molly Hensley MD [address] [place] [address] Discharge Disposition: Home or Self Care (Routine Discharge) Social History Tobacco Use Types Packs/Day Years Used Date Smoking Tobacco: Never Assessed Comments No Sex and Gender Information Value Date Recorded Sex Assigned at Not on file Legal Sex Female 9:42 PM LINTER OPERATOR Gender Identity Not on file Sexual Orientation Not on file documented as of this encounter Plan of Treatment Not on file documented as of this encounter Procedures Procedure Name Priority Date/Time Associated Diagnosis Comments US GD BREAST BX LT BIRAD Routine 09/21/2023 1:40 PM CDT Abnormal mammogram documented in this encounter Results * US GD BREAST BX LT BIRAD (09/21/2023 1:40 PM CDT) Anatomical Region Laterality Modality Breast Left Ultrasound, Radi ographic Imaging LEFT BREAST STRUCTURE / Unknown 09/21/2023 1:55 PM CDT Impressions 09/21/2023 2:03 PM CDT IMPRESSION: 1. Uneventful ultrasound-guided left breast cyst aspiration as described. 2. Follow-up as described. Ordered By: MOLLY HENSLEY Interpreted By: Ralph Martinez MD, 09/21/2023 1:55 PM Narrative 09/21/2023 2:03 PM CDT Examination: Ultrasound-guided left breast cyst aspiration. Exam time: 1226 hours. Clinical history: Indeterminate nodule. Comparison: 09/16/2023; digital mammograms, 09/16/2023, 08/21/2023. Technique: Grayscale and color Doppler images. Findings: Prior imaging was reviewed. Appropriate consent and timeout procedures were accomplished. Initial images redemonstrate the nearly anechoic focus near the 2:00 position representing the primary site of concern. The suspected area of focal fibrocystic changes near the 12:00 position has a more cystic appearance further suggestive of benignity. For the target lesion at the 2:00 position it was elected to attempt aspiration first. Following sterile prep and local anesthesia with 1% Xylocaine, the lesion was successfully punctured without incident under sonographic guidance utilizing a 20-gauge spinal needle. Aspiration yielded a few drops of clear yellowish fluid (benign) with complete collapse of the cyst. The needle was withdrawn. Postprocedure scans show no immediate complication. The puncture site was cleaned and dressed per the kitchen aide. The patient tolerated the procedure well. On review of the mammograms, the screen detected finding does not clearly correlate with either of the sonographic findings in my opinion but is very likely benign, either an isoechoic lymph node or island of fibroglandular tissue. Given the suspected mammographic/sonographic discordance and the previous concerns raised about the finding at 12:00, left mammography and breast ultrasound in six months for surveillance is suggested. These findings were discussed with the patient. us Molly Hensley MD ULTRASOUND Final Result documented in this encounter Visit Diagnoses Diagnosis Abnormal mammogram Abnormal mammogram, unspecified documented in this encounter Care Teams Balance Bridge Assembler Relationship Specialty Start Date End Date Jesús Davenport MD [address] [place] [address] PCP - General FAMILY PRACTICE 03/01/19 documented as of this encounter
--- OUTSIDE RECORDS SUMMARY | 2024-05-30 02:29 | XMS_ITS | Encounter Summary ---
Author Organization [facility] Address [address] [place] [address]. [place], [place] [address] [place] [address] Care Team Providers Care R Developer Name Role Phone Unavailable Primary Care Provider Unavailabl e Encounter Details Date Type Department Care Team (Late st Contact Info) Description 08/26/[address] [facility] [address] [place] [address] Beckie Young MD [address] [place] [address] Social History Tobacco Use Types Packs/Day Years Used Date Smoking Tobacco: Never Assessed Comments Unknown Sex and Gender Information Value Date Recorded Sex Assigned at Not on file Legal Sex Female 9:42 PM DELIVERY MANAGER Gender Identity Not on file Sexual Orientation Not on file documented as of this encounter Plan of Treatment Not on file documented as of this encounter Visit Diagnoses Not on filedocumented in this encounter
--- OUTSIDE RECORDS SUMMARY | 2024-05-30 02:29 | XMS_ITS | Encounter Summary ---
Author Organization [facility] Address [address] [place] [address]. [place] [phone] Care Team Providers Care Electric Distribution Engineer Name Role Phone Jesús Davenport MD Primary Care Provider [phone] Encounter Details Date Type Department Care Team (Latest Contact Info) Description 06/25/2022 Travel Social History Tobacco Use Types Packs/Day Years Used Date Smoking Tobacco: Never Assessed Comments No Sex and Gender Information Value Date Recorded Sex Assigned at Not on file Legal Sex Female 9:42 PM CLINICAL MANAGER Gender Identity Not on file Sexual Orientation Not on file COVID-19 Exposure Response Date Recorded In the last 10 days, have yo u been in contact with someone who was confirmed or suspected to have Coronavirus/COVID-19? No / Unsure 06/25/2022 3:42 PM CLINICAL MANAGER documented as of this encounter Plan of Treatment Not on file documented as of this encounter Visit Diagnoses Not on filedocumented in this encounter Care Teams Electric Distribution Engineer Relationship Specialty Start Date End Date Jesús Davenport MD [address] [place] [address] PCP - General FAMILY PRACTICE 03/01/19 documented as of this encounter
--- OUTSIDE RECORDS SUMMARY | 2024-05-30 02:30 | XMS_ITS | Encounter Summary ---
Author Organization [facility] Address [address] [place] [address]. [place], [place] [address] [place] [address] Care Team Providers Care Youtuber Name Role Phone Unavailable Primary Care Provider Unavailabl e Encounter Details Date Type Department Care Team (Late st Contact Info) Description 08/04/1994 Abstract [facility] [address] [place] [address] , Generic Conversion, Social History Tobacco Use Types Packs/Day Years Used Date Smoking Tobacco: Never Assessed Comments Unknown Sex and Gender Information Value Date Recorded Sex Assigned at Not on file Legal Sex Female 9:42 PM HYDROGEN POWER PLANT MANAGER Gender Identity Not on file Sexual Orientation Not on file documented as of this encounter Plan of Treatment Not on file documented as of this encounter Visit Diagnoses Not on filedocumented in this encounter
--- OUTSIDE RECORDS SUMMARY | 2024-05-30 02:30 | XMS_ITS | Encounter Summary ---
Author Organization [facility] Address [address] [place] [address]. [place], [place] [address] [place] [address] Care Team Providers Care Field Education Coordinator Name Role Phone Unavailable Primary Care Provider Unavailabl e Encounter Details Date Type Department Care Team (Late st Contact Info) Description 11/25/1989 Abstract [facility] [address] [place] [address] , Generic Conversion, Social History Tobacco Use Types Packs/Day Years Used Date Smoking Tobacco: Never Assessed Comments Unknown Sex and Gender Information Value Date Recorded Sex Assigned at Not on file Legal Sex Female 9:42 PM LAUNDRY OPERATOR WASH ROOM Gender Identity Not on file Sexual Orientation Not on file documented as of this encounter Plan of Treatment Not on file documented as of this encounter Visit Diagnoses Not on filedocumented in this encounter
--- OUTSIDE RECORDS SUMMARY | 2024-05-30 02:30 | XMS_ITS | Encounter Summary ---
Author Organization [facility] Address [address] [place] [address]. [place], [place] [address] [place] [address] Care Team Providers Care Die Mounter Name Role Phone Unavailable Primary Care Provider Unavailabl e Encounter Details Date Type Department Care Team (Late st Contact Info) Description 08/04/1994 Abstract [facility] [address] [place] [address] , Generic Conversion, Social History Tobacco Use Types Packs/Day Years Used Date Smoking Tobacco: Never Assessed Comments Unknown Sex and Gender Information Value Date Recorded Sex Assigned at Not on file Legal Sex Female 9:42 PM ORGANIC CHEMISTRY PROFESSOR Gender Identity Not on file Sexual Orientation Not on file documented as of this encounter Plan of Treatment Not on file documented as of this encounter Visit Diagnoses Not on filedocumented in this encounter
--- OUTSIDE RECORDS SUMMARY | 2024-05-30 02:30 | XMS_ITS | Encounter Summary ---
Author Organization [facility] Address [address] [place] [address]. [place], [place] [id number] [place] [id number] Care Team Providers Care Varnish Melter Name Role Phone Unavailable Primary Care Provider Unavailabl e Encounter Details Date Type Department Care Team (Late st Contact Info) Description 1975 Abstract [facility] CONVERSION [address] [place] [address] , Generic Conversion, Social History Tobacco Use Types Packs/Day Years Used Date Smoking Tobacco: Never Assessed Comments Unknown Sex and Gender Information Value Date Recorded Sex Assigned at Not on file Legal Sex Female 9:42 PM PRODUCTION ARTIST Gender Identity Not on file Sexual Orientation Not on file documented as of this encounter Plan of Treatment Not on file documented as of this encounter Visit Diagnoses Not on filedocumented in this encounter
--- OUTSIDE RECORDS SUMMARY | 2024-05-30 02:30 | XMS_ITS | Encounter Summary ---
Author Organization [facility] Address [address] [place] [address]. [place], [place] [id number] [place] [id number] Care Team Providers Care Solution Coordinator Name Role Phone Unavailable Primary Care Provider Unavailabl e Encounter Details Date Type Department Care Team (Late st Contact Info) Description 1975 Abstract [facility] CONVERSION [address] [place] [address] , Generic Conversion, Social History Tobacco Use Types Packs/Day Years Used Date Smoking Tobacco: Never Assessed Comments Unknown Sex and Gender Information Value Date Recorded Sex Assigned at Not on file Legal Sex Female 9:42 PM HOUSEHOLD CHORES Gender Identity Not on file Sexual Orientation Not on file documented as of this encounter Plan of Treatment Not on file documented as of this encounter Visit Diagnoses Not on filedocumented in this encounter
--- OUTSIDE RECORDS SUMMARY | 2024-05-30 02:30 | XMS_ITS | Encounter Summary ---
Author Organization [facility] Address [address] [place] [address]. [place], [place] [id number] [place] [id number] Care Team Providers Care Mechanist Name Role Phone Unavailable Primary Care Provider Unavailabl e Encounter Details Date Type Department Care Team (Late st Contact Info) Description 1975 Abstract [facility] CONVERSION [address] [place] [address] , Generic Conversion, Social History Tobacco Use Types Packs/Day Years Used Date Smoking Tobacco: Never Assessed Comments Unknown Sex and Gender Information Value Date Recorded Sex Assigned at Not on file Legal Sex Female 9:42 PM BRICKLAYER SUPERVISOR Gender Identity Not on file Sexual Orientation Not on file documented as of this encounter Plan of Treatment Not on file documented as of this encounter Visit Diagnoses Not on filedocumented in this encounter
== END 2024-05-24 09:48 | disposition home or self-care (01) ==
LOC: ANHSURGERY 07:20 → ANHOB2 12:00
PROVIDERS: Visit Provider Obstetrics & Gynecology
PROC: (CPT 58571; principal; 2024-05-23 07:30)
DX: R93.89 Abnormal findings on diagnostic imaging of other specified body structures (principal); D25.2 Subserosal leiomyoma of uterus; N80.03 Adenomyosis of the uterus; N73.6 Female pelvic peritoneal adhesions (postinfective); Z79.1 Long term (current) use of non-steroidal anti-inflammatories (NSAID); Z79.891 Long term (current) use of opiate analgesic; Z98.890 Other specified postprocedural states; Z98.51 Tubal ligation status; Z98.891 History of uterine scar from previous surgery; Z84.0 Family history of diseases of the skin and subcutaneous tissue
CPT/HCPCS: 58571; S2900; 36415; 80048; 85025; 88307; 99199; A9270; J0690; J1100; J1171; J1836; J1885; J2003; J2004; J2250; J2405; J2550; J2704; J3010; J7030; J7120; Q9968